=== PATIENT | female | born 1965 | race African-American/Black ===

== ENCOUNTER 2025-05-07 05:57 | Outpatient (REF) | payer BC, MEDICARE, SELFPAY ==
--- OUTSIDE RECORDS SUMMARY | 2024-02-22 09:45 | XMS_ITS ---
Author Organization [facility] Address [address] [place] [address] Support Name Relationship Address Phone Asad Sofya Emergency Contact [address] [place], [place] [phone] Bernice Livingston Guarantor Unknown [phone] Care Team Providers Care Landscape Gardener Name Role Phone Dr Nishi Banks Primary Care Provider Carli Sophy Ray Unavailable [phone] Kaleb Lenz Unavailable [phone] REASON FOR VISIT Painful nail(s) aggrevated by shoes and causing difficulty standing/walking. Encounters Encounter Location Date Provider [facility] [address] [place] [address] 02/22/2024 Kaleb Lenz Tinea unguium B35.1 ; Pain in right toe(s) M79.674 ; Pain in left toe(s) M79.675 ; Ingrowing nail L60.0 ; Skin disease L98.9 and Atherosclerosis of [place] arteries of extremities with intermittent claudication, bilateral legs I70.213 Assessments Encounter Date Diagnosis (ICD Code) Assessment Notes Treatment Notes Treatment Clinical Notes Section Notes 02/22/2024 Tinea unguium (ICD-10 - B35.1) 02/22/2024 Pain in right toe(s) (ICD-10 - M79.674) 02/22/2024 Pain in left toe(s) (ICD-10 - M79.675) 02/22/2024 Ingrowing nail (ICD-10 - L60.0) 02/22/2024 Skin disease (ICD-10 - L98.9) 02/22/2024 Atherosclerosis of [place] arteries of extremities with intermittent claudication, bilateral [...] as necessary. Patient chooses, no pharmaceutical tx (39127) Keratoma Treatment Parring or Cutting o f Benign Hyperkeratotic Lesion(s) 38276 ( 2-4 Lesions ) - The Benign hyperkeratotic lesions, as described above were pared, and/or cut utilizing a sterile 15 blade, tissue nippers, and/or dremel, Q8 Progress Notes * Cruz LIVINGSTONB:1965 ([age] yo F)Acc No.[id number]:02/22/2024 Progress Note Patient: Bernice PENA Provider: Aspen Gupta DPM :1965 A ge:58 Y S ex:Female Date:02/22/2024 Address:[address] [place], [place] [address] Pcp:Dr Nishi Banks Subjective: * Chief Complaints: [...] enies. C ardiovascular: Pacemaker d enies. M DIRECTOR OF ASSISTED LIVING d enies. W PW d enies. C [...] - L98.9 6 . A therosclerosis of [place] arteries of extremities with intermittent claudication, bilateral [...] as necessary. Patient chooses, no pharmaceutical tx (02578). K eratoma Treatment: Parring or Cutting of [...] NAIL, 6 OR MORE, Modifiers: XS , 56165 TRIM SKIN LESIONS, 2 TO 4, Modifiers: Q8 , 49605 Avulsion Plate, Modifiers: TA * Follow Up: 4 Months * Images: * The named appointment provid er may or may not be the originator of this progress note, and it is not deemed complete until electronically signed by the appointment provider. Sign off status: Pending * Provider: Aspen Gupta DPM Date: 0 02/22/2024 Generated for Kathleen olivier/Annika/Lele on: 06:04 AM EDT History and Physical Notes * [...]
--- OUTSIDE RECORDS SUMMARY | 2024-05-25 09:30 | XMS_ITS ---
Author Organization [facility] Address [address] [place] [address] Support Name Relationship Address Phone Sofya Kamara Emergency Contact [address] [place], [place] [phone] Miki Bernice Guarantor Unknown [phone] Care Team Providers Care Industrial Engineering Name Role Phone Dr Nishi Banks Primary Care Provider Carli Sophy Ray Unavailable [phone] Eddi Fulton Unavailable [phone] Allergies Allergen (clinical drug ingredient) Drug/Non Drug Allergy documented on EMR Reaction Allergy Type Onset Date Status benazepril Benazepril HCl lip swells Drug Allergy Active Encounters Encounter Location Date Provider Diagnosis [facility] [address] [place] [address] 05/25/2024 Eddi Fulton Plan Of Treatment No Information Progress Notes * Mena MEHTAaDOB:1965 ([age] yo F)Acc No.[id number]:05/25/2024 Progress Note Patient: Bernice PENA Provider: Gaurav Fulton DPM :1965 A ge:58 Y S ex:Female Date:05/25/2024 Address:[address] [place] [address] Pcp:Dr Nishi Banks Subjective: * Chief Complaints: [...] Date: 07/25/2023 Generated for Kathleen olivier/Annika/Lele on: 06:04 AM EDT
--- OUTSIDE RECORDS SUMMARY | 2025-04-17 10:00 | XMS_ITS ---
Author Organization [facility] Address [address] [place] [address] Support Name Relationship Address Phone Sofya Kamara Emergency Contact [address] [place], [place] [phone] Bernice Mehta Guarantor Unknown [phone] Care Team Providers Care Rough And Truing Machine Operator Name Role Phone Dr Nishi Banks Primary Care Provider Carli Sophy Ray Unavailable [phone] REASON FOR VISIT Cx with reminder call Encounters Encounter Location Date [facility] [address] [address] 04/17/2025 Sophy Washington Plan Of Treatment No Information Progress Notes * Mena MEHTAClaraB:1965 ([age] yo F)Acc No.[id number]:04/17/2025 Progress Note Patient: Bernice PENA Provider: Guanako Washington DPM :1965 A ge:59 Y S ex:Female Date:04/17/2025 Address:[address] [place], [place] [address] Pcp:Dr Nishi Banks Subjective: * Chief Complaints: [...] 04/17/2025 Generated for Printi ng/Faxing/eTransmitting on: 1 06:04 AM EDT
[2025-05-07 06:03] LABS: MANUAL DIFF FLAG NO
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
[2025-05-07 06:58] LABS: Hematocrit 25.8 % (37.0-47.0); Hemoglobin 8.7 g/dl (12.0-16.0); Imm Gran Abs Auto 0.01 X10*3/uL (0.00-0.03); Imm Gran Pct Auto 0.2 % (0.0-0.4); Lymphocytes Absolute Auto 1.1 X10*3/uL (1.2-4.9); Mean Corpuscular HGB Conc 33.7 g/dl (31.0-35.0); Mean Corpuscular Hemoglobin 28.3 pg (27.0-33.0); Mean Corpuscular Volume 84.0 fL (80.0-98.0); NRBC Abs Auto 0.000 X10*3/uL (0.0-0.012); NRBC Pct Auto 0.0 /100WBC (0.0-0.2); Platelet Count 269 X10*3/uL (160-400); Red Blood Count 3.07 X10*6/uL (4.20-5.50); White Blood Count 4.7 X10*3/uL (4.8-10.8)
[2025-05-07 07:35] LABS: Alanine Aminotransferase 27 U/L (0-31); Albumin Level 3.4 g/dL (3.5-5.0); Alkaline Phosphatase 88 U/L (39-117); Anion Gap 21 (12-20); Aspartate Amino Transferase 41 U/L (5-31); Blood Urea Nitrogen 54 mg/dL (9-16); Calcium 9.6 mg/dL (8.4-10.2); Carbon Dioxide 21 mmol/L (22-29); Chloride 97 mmol/L (96-108); Estimated Glomerular Filt Rate 6; Potassium 4.6 mmol/L (3.3-5.1); Sodium 134 mmol/L (135-145); Total Protein 6.8 g/dL (6.5-8.0)
[2025-05-09 05:58] LABS: Uric Acid 4.6 mg/dL (2.4-5.7)
== END 2025-05-07 05:58 | disposition home or self-care (01) ==
LOC: HO.MMNH2L 05:57
PROVIDERS: Visit Provider Physician Assistant Medical
DX: I48.91 Unspecified atrial fibrillation (principal); N18.6 End stage renal disease; G89.4 Chronic pain syndrome; Z13.1 Encounter for screening for diabetes mellitus
CPT/HCPCS: 36415; 80053; 83036; 84550; 85025

== ENCOUNTER 2025-05-14 05:17 | Outpatient (REF) | payer BC, MEDICARE, SELFPAY ==
[2025-05-14 05:16] LABS: MANUAL DIFF FLAG NO
[2025-05-14 05:51] LABS: Hematocrit 26.1 % (37.0-47.0); Hemoglobin 8.6 g/dl (12.0-16.0); Imm Gran Abs Auto 0.01 X10*3/uL (0.00-0.03); Imm Gran Pct Auto 0.2 % (0.0-0.4); Lymphocytes Absolute Auto 1.1 X10*3/uL (1.2-4.9); Mean Corpuscular HGB Conc 33.0 g/dl (31.0-35.0); Mean Corpuscular Hemoglobin 28.1 pg (27.0-33.0); Mean Corpuscular Volume 85.3 fL (80.0-98.0); NRBC Abs Auto 0.000 X10*3/uL (0.0-0.012); NRBC Pct Auto 0.0 /100WBC (0.0-0.2); Platelet Count 255 X10*3/uL (160-400); Red Blood Count 3.06 X10*6/uL (4.20-5.50); White Blood Count 4.6 X10*3/uL (4.8-10.8)
[2025-05-14 06:17] LABS: Anion Gap 13 (12-20); Blood Urea Nitrogen 49 mg/dL (9-16); Calcium 10.9 mg/dL (8.4-10.2); Carbon Dioxide 29 mmol/L (22-29); Chloride 100 mmol/L (96-108); Estimated Glomerular Filt Rate 7; Potassium 3.8 mmol/L (3.3-5.1); Sodium 138 mmol/L (135-145)
== END 2025-05-14 05:18 | disposition home or self-care (01) ==
LOC: HO.MMNH2L 05:17
PROVIDERS: Visit Provider Physician Assistant Medical
DX: N18.6 End stage renal disease (principal); I48.91 Unspecified atrial fibrillation
CPT/HCPCS: 36415; 80048; 85025

== ENCOUNTER 2025-05-17 07:39 | Outpatient (REF) | payer BC, MEDICARE, SELFPAY ==
--- OUTSIDE RECORDS SUMMARY | 2024-02-22 09:45 | XMS_ITS ---
Author Organization [facility] Address [address] [place] [address] Support Name Relationship Address Phone Asad Sofya Emergency Contact [address] [place], [place] [phone] Bernice Livingston Guarantor Unknown [phone] Care Team Providers Care Hash Slinger Name Role Phone Dr Nishi Banks Primary Care Provider Carli Sophy Ray Unavailable [phone] Kaleb Lenz Unavailable [phone] REASON FOR VISIT Painful nail(s) aggrevated by shoes and causing difficulty standing/walking. Encounters Encounter Location Date [facility] [address] [place] [address] 02/22/2024 Kaleb Lenz Tinea unguium B35.1 ; Pain in right toe(s) M79.674 ; Pain in left toe(s) M79.675 ; Ingrowing nail L60.0 ; Skin disease L98.9 and Atherosclerosis of [place] arteries of extremities with intermittent claudication, bilateral legs I70.213 Assessments Encounter Date Diagnosis (ICD Code) Assessment Notes Treatment Notes Treatment Clinical Notes Section Notes 02/22/2024 Tinea unguium (ICD-10 - B35.1) 02/22/2024 Pain in right toe(s) (ICD-10 - M79.674) 02/22/2024 Pain in left toe(s) (ICD-10 - M79.675) 02/22/2024 Ingrowing nail (ICD-10 - L60.0) 02/22/2024 Skin disease (ICD-10 - L98.9) 02/22/2024 Atherosclerosis of [place] arteries of extremities with intermittent claudication, bilateral [...] as necessary. Patient chooses, no pharmaceutical tx (34527) Keratoma Treatment Parring or Cutting o f Benign Hyperkeratotic Lesion(s) 76126 ( 2-4 Lesions ) - The Benign hyperkeratotic lesions, as described above were pared, and/or cut utilizing a sterile 15 blade, tissue nippers, and/or dremel, Q8 Progress Notes * Cruz LIVINGSTONB:1965 ([age] yo F)Acc No.[id number]:02/22/2024 Progress Note Patient: Bernice PENA Provider: Aspen Gupta DPM :1965 A ge:58 Y S ex:Female Date:02/22/2024 Address:[address] [place], [place] [address] Pcp:Dr Nishi Banks Subjective: * Chief Complaints: [...] enies. C ardiovascular: Pacemaker d enies. M CHILDREN'S MINISTRY DIRECTOR d enies. W PW d enies. C [...] - L98.9 6 . A therosclerosis of [place] arteries of extremities with intermittent claudication, bilateral [...] as necessary. Patient chooses, no pharmaceutical tx (47729). K eratoma Treatment: Parring or Cutting of [...] NAIL, 6 OR MORE, Modifiers: XS , 99592 TRIM SKIN LESIONS, 2 TO 4, Modifiers: Q8 , 24499 Avulsion Plate, Modifiers: TA * Follow Up: 4 Months * Images: * The named appointment provid er may or may not be the originator of this progress note, and it is not deemed complete until electronically signed by the appointment provider. Sign off status: Pending * Provider: Aspen Gupta DPM Date: 0 02/22/2024 Generated for Kathleen olivier/Annika/Lele on: 07:45 AM EDT History and Physical Notes * HPI (History [...]
--- OUTSIDE RECORDS SUMMARY | 2024-05-25 09:30 | XMS_ITS ---
Author Organization [facility] Address [address] [place] [address] Support Name Relationship Address Phone Sofya Kamara Emergency Contact [address] [place], [place] [phone] Miki Bernice Guarantor Unknown [phone] Care Team Providers Care Manager Project Management Name Role Phone Dr Nishi Banks Primary Care Provider Carli Sophy Ray Unavailable [phone] Eddi Fulton Unavailable [phone] Allergies Allergen (clinical drug ingredient) Drug/Non Drug Allergy documented on EMR Reaction Allergy Type Onset Date Status benazepril Benazepril HCl lip swells Drug Allergy Active Encounters Encounter Location Date Provider Diagnosis [facility] [address] [place] [address] 05/25/2024 Eddi Fulton Plan Of Treatment No Information Progress Notes * Mena MEHTAaDOB:1965 ([age] yo F)Acc No.[id number]:05/25/2024 Progress Note Patient: Bernice PENA Provider: Gaurav Fulton DPM :1965 A ge:58 Y S ex:Female Date:05/25/2024 Address:[address] [place] [address] Pcp:Dr Nishi Banks Subjective: * Chief Complaints: [...] Date: 07/25/2023 Generated for Kathleen olivier/Annika/Lele on: 07:46 AM EDT
--- OUTSIDE RECORDS SUMMARY | 2025-04-17 10:00 | XMS_ITS ---
Author Organization [facility] Address [address] [place] [address] Support Name Relationship Address Phone Sofya Kamara Emergency Contact [address] [place], [place] [phone] Bernice Mehta Guarantor Unknown [phone] Care Team Providers Care Speech Communication Instructor Name Role Phone Dr Nishi Banks Primary Care Provider Carli Sophy Ray Unavailable [phone] REASON FOR VISIT Cx with reminder call Encounters Encounter Location Date [facility] [address] [address] 04/17/2025 Sophy Washington Plan Of Treatment No Information Progress Notes * Mena MEHTAClaraB:1965 ([age] yo F)Acc No.[id number]:04/17/2025 Progress Note Patient: Bernice PENA Provider: Guanako Washington DPM :1965 A ge:59 Y S ex:Female Date:04/17/2025 Address:[address] [place], [place] [address] Pcp:Dr Nishi Banks Subjective: * Chief Complaints: [...] 04/17/2025 Generated for Printi ng/Faxing/eTransmitting on: 1 07:45 AM EDT
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
[2025-05-17 09:51] LABS: Anion Gap 14 (12-20); Blood Urea Nitrogen 55 mg/dL (9-16); Calcium 11.4 mg/dL (8.4-10.2); Carbon Dioxide 29 mmol/L (22-29); Chloride 100 mmol/L (96-108); Estimated Glomerular Filt Rate 6; Potassium 4.4 mmol/L (3.3-5.1); Sodium 139 mmol/L (135-145)
== END 2025-05-17 07:40 | disposition home or self-care (01) ==
LOC: HO.MMNH2L 07:39
PROVIDERS: Visit Provider Physician Assistant Medical
DX: N18.6 End stage renal disease (principal)
CPT/HCPCS: 36415; 80048

== ENCOUNTER 2025-05-21 05:45 | Outpatient (REF) | payer BC, MEDICARE, SELFPAY ==
--- OUTSIDE RECORDS SUMMARY | 2024-02-22 08:45 | XMS_ITS ---
Author Organization [facility] Address [address] [place] [address] Support Name Relationship Address Phone Asad Sofya Emergency Contact [address] [place], [place] [phone] Bernice Livingston Guarantor Unknown [phone] Care Team Providers Care Bilingual Case Manager Name Role Phone Dr Nishi Banks Primary Care Provider Carli Sophy Ray Unavailable [phone] Kaleb Lenz Unavailable [phone] REASON FOR VISIT Painful nail(s) aggrevated by shoes and causing difficulty standing/walking. Encounters Encounter Location Date [facility] [address] [place] [address] 02/22/2024 Kaleb Lenz Tinea unguium B35.1 ; Pain in right toe(s) M79.674 ; Pain in left toe(s) M79.675 ; Ingrowing nail L60.0 ; Skin disease L98.9 and Atherosclerosis of [place] arteries of extremities with intermittent claudication, bilateral legs I70.213 Assessments Encounter Date Diagnosis (ICD Code) Assessment Notes Treatment Notes Treatment Clinical Notes Section Notes 02/22/2024 Tinea unguium (ICD-10 - B35.1) 02/22/2024 Pain in right toe(s) (ICD-10 - M79.674) 02/22/2024 Pain in left toe(s) (ICD-10 - M79.675) 02/22/2024 Ingrowing nail (ICD-10 - L60.0) 02/22/2024 Skin disease (ICD-10 - L98.9) 02/22/2024 Atherosclerosis of [place] arteries of extremities with intermittent claudication, bilateral [...] as necessary. Patient chooses, no pharmaceutical tx (51781) Keratoma Treatment Parring or Cutting o f Benign Hyperkeratotic Lesion(s) 04852 ( 2-4 Lesions ) - The Benign hyperkeratotic lesions, as described above were pared, and/or cut utilizing a sterile 15 blade, tissue nippers, and/or dremel, Q8 Progress Notes * Cruz LIVINGSTONB:1965 ([age] yo F)Acc No.[id number]:02/22/2024 Progress Note Patient: Bernice PENA Provider: Aspen Gupta DPM :1965 A ge:58 Y S ex:Female Date:02/22/2024 Address:[address] [place], [place] [address] Pcp:Dr Nishi Banks Subjective: * Chief Complaints: [...] enies. C ardiovascular: Pacemaker d enies. M LENS ASSISTANT d enies. W PW d enies. C [...] - L98.9 6 . A therosclerosis of [place] arteries of extremities with intermittent claudication, bilateral [...] as necessary. Patient chooses, no pharmaceutical tx (02834). K eratoma Treatment: Parring or Cutting of [...] NAIL, 6 OR MORE, Modifiers: XS , 47790 TRIM SKIN LESIONS, 2 TO 4, Modifiers: Q8 , 95295 Avulsion Plate, Modifiers: TA * Follow Up: 4 Months * Images: * The named appointment provid er may or may not be the originator of this progress note, and it is not deemed complete until electronically signed by the appointment provider. Sign off status: Pending * Provider: Aspen Gupta DPM Date: 0 02/22/2024 Generated for Kathleen olivier/Annika/Lele on: 07/21/2024 05:48 AM EST History and Physical Notes * [...]
--- OUTSIDE RECORDS SUMMARY | 2024-05-25 08:30 | XMS_ITS ---
Author Organization [facility] Address [address] [place] [address] Support Name Relationship Address Phone Sofya Kamara Emergency Contact [address] [place], [place] [phone] Miki Bernice Guarantor Unknown [phone] Care Team Providers Care Sales Recruitment Specialist Name Role Phone Dr Nishi Banks Primary Care Provider Carli Sophy Ray Unavailable [phone] Eddi Fulton Unavailable [phone] Allergies Allergen (clinical drug ingredient) Drug/Non Drug Allergy documented on EMR Reaction Allergy Type Onset Date Status benazepril Benazepril HCl lip swells Drug Allergy Active Encounters Encounter Location Date Provider Diagnosis [facility] [address] [place] [phone] 05/25/2024 Eddi Fulton Plan Of Treatment No Information Progress Notes * Mena MEHTAaDOB:1965 ([age] yo F)Acc No.[id number]:05/25/2024 Progress Note Patient: Bernice PENA Provider: Gaurav Fulton DPM :1965 A ge:58 Y S ex:Female Date:05/25/2024 Address:[address] [place] [address] Pcp:Dr Nishi Banks Subjective: * Chief Complaints: [...] Date: 07/25/2023 Generated for Kathleen olivier/Annika/Lele on: 07/21/2024 05:48 AM EST
--- OUTSIDE RECORDS SUMMARY | 2025-04-17 09:00 | XMS_ITS ---
Author Organization [facility] Address [address] [place] [address] Support Name Relationship Address Phone Sofya Kamara Emergency Contact [address] [place], [place] [phone] Bernice Mehta Guarantor Unknown [phone] Care Team Providers Care Draw Operator Name Role Phone Dr Nishi Banks Primary Care Provider Carli Sophy Ray Unavailable [phone] REASON FOR VISIT Cx with reminder call Encounters Encounter Location Date [facility] [address] [address] 04/17/2025 Sophy Washington Plan Of Treatment No Information Progress Notes * Mena MEHTAClaraB:1965 ([age] yo F)Acc No.[id number]:04/17/2025 Progress Note Patient: Bernice PENA Provider: Guanako Washington DPM :1965 A ge:59 Y S ex:Female Date:04/17/2025 Address:[address] [place], [place] [address] Pcp:Dr Nishi Banks Subjective: * Chief Complaints: [...] 0 04/17/2025 Generated for Printi ng/Faxing/eTransmitting on: 07/21/2024 05:48 AM EST
[2025-05-21 05:38] LABS: MANUAL DIFF FLAG NO
--- OUTSIDE RECORDS SUMMARY | 2025-05-21 05:49 | XMS_ITS | Patient Health Record ---
Author Organization [facility] Address [address] [place] [address] Support Name Relationship Address Phone Sofya Kamara Emergency Contact [address] [place], [place] [phone] Bernice Livingston Guarantor Unknown [phone] Care Team Providers Care Paraffiner Name Role Phone Dr Nishi Banks Primary Care Provider Sophy Albrecht Unavailable [phone] Eddi Fulton Unavailable [phone] Allergies Allergen (clinical drug ingredient) Drug/Non Drug [...] Status Risk Notes Problem Plantar fascial fibromatosis (89645452) Plantar fascial fibromatosis (M72.2) Active confirmed Problem Tinea unguium (443076839) Tinea unguium (B35.1) Active confirmed Problem Intermittent claudication of bilateral lower limbs co-occurrent and due to atherosclerosis (98722053898135843 ) Atherosclerosis of [place] arteries of extremities with intermittent claudication, bilateral legs (I70.213) Active confirmed Vital Signs Height 5ft 9in in 01/16/2025 Weight 240 lbs 01/16/2025 BMI 35.44 kg/m2 01/16/2025 Procedures Procedure Date Ordered Date Performed Result Body Sit e 26652-HENBPRC NAIL, 6 OR MORE 01/16/2025 N/A Encounters Encounter Location Date Provider [facility] [address] [address] 01/16/2025 Sophy Washington Pain in right toe(s) M79.674 ; Onychomycosis B35.1 and Pain in left toe(s) M79.675 [facility] [address] [address] 05/25/2024 Eddisiddharth Fulton [facility] [address] [address] 04/16/2025 Sophy Washington Assessments Encounter Date Diagnosis (ICD Code) Assessment Notes Treatment Notes Treatment Clinical Notes Section Notes 01/16/2025 Pain in right toe(s) (ICD-10 - M79.674) 01/16/2025 Onychomycosis (ICD-10 - B35.1) 01/16/2025 Pain in left toe(s) (ICD-10 - M79.675) Plan Of Treatment Pending Test Test Name Order Date 26928-FXINTMI NAIL, 6 OR MORE 10/22/2016 86631-TXCNSJO NAIL, 6 OR MORE 10/15/2016 63016-YMVUSFT NAIL, 6 OR MORE 01/16/2025 73049-Dkxrqhqx Plate 06/01/2023 68200-Fmqxhigy Plate 10/15/2016 26261-Cjoelghf Plate 10/22/2016 75594-XSKO SKIN LESIONS, 2 TO 4 02/10/20 13839-STZK SKIN LESIONS, 2 TO 4 06/01/20 Insurance Providers Payer Name Payer Address Payer Phone Subscriber Number Group Number Insured Name Patient Relationship to Insured Coverage Start Date Coverage End Date [facility] [employer] SCO Claims [address] [place] Velaz[place] [id number] Bernice Livingston Self - patient is the [...] 11/2024 hysterectomy complications, stitch came out [place]18[place] [facility] [facility] [place] [facility] [place] [facility] [place] [facility] [place] [place] 01/22/23 [facility] 09/21/16
[2025-05-21 06:27] LABS: Hematocrit 26.2 % (37.0-47.0); Hemoglobin 8.7 g/dl (12.0-16.0); Imm Gran Abs Auto 0.01 X10*3/uL (0.00-0.03); Imm Gran Pct Auto 0.2 % (0.0-0.4); Lymphocytes Absolute Auto 1.0 X10*3/uL (1.2-4.9); Mean Corpuscular HGB Conc 33.2 g/dl (31.0-35.0); Mean Corpuscular Hemoglobin 28.2 pg (27.0-33.0); Mean Corpuscular Volume 84.8 fL (80.0-98.0); NRBC Abs Auto 0.000 X10*3/uL (0.0-0.012); NRBC Pct Auto 0.0 /100WBC (0.0-0.2); Platelet Count 170 X10*3/uL (160-400); Red Blood Count 3.09 X10*6/uL (4.20-5.50); White Blood Count 4.4 X10*3/uL (4.8-10.8)
[2025-05-21 07:23] LABS: Anion Gap 12 (12-20); Blood Urea Nitrogen 49 mg/dL (9-16); Calcium 10.8 mg/dL (8.4-10.2); Carbon Dioxide 29 mmol/L (22-29); Chloride 98 mmol/L (96-108); Estimated Glomerular Filt Rate 7; Potassium 4.5 mmol/L (3.3-5.1); Sodium 134 mmol/L (135-145)
== END 2025-05-21 05:46 | disposition home or self-care (01) ==
LOC: HO.MMNH2L 05:45
PROVIDERS: Visit Provider Physician Assistant Medical
DX: N18.6 End stage renal disease (principal); I48.91 Unspecified atrial fibrillation
CPT/HCPCS: 36415; 80048; 85025

== ENCOUNTER 2025-05-23 06:51 | Outpatient (REF) | payer BC, MEDICARE, SELFPAY ==
--- OUTSIDE RECORDS SUMMARY | 2024-02-22 08:45 | XMS_ITS ---
Author Organization [facility] Address [address] [place] [address] Support Name Relationship Address Phone Asad Sofya Emergency Contact [address] [place], [place] [phone] Bernice Livingston Guarantor Unknown [phone] Care Team Providers Care Manager Of Business Name Role Phone Dr Nishi Banks Primary Care Provider Carli Sophy Ray Unavailable [phone] Kaleb Lenz Unavailable [phone] REASON FOR VISIT Painful nail(s) aggrevated by shoes and causing difficulty standing/walking. Encounters Encounter Location Date [facility] [address] [place] [address] 02/22/2024 Kaleb Lenz Tinea unguium B35.1 ; Pain in right toe(s) M79.674 ; Pain in left toe(s) M79.675 ; Ingrowing nail L60.0 ; Skin disease L98.9 and Atherosclerosis of [place] arteries of extremities with intermittent claudication, bilateral legs I70.213 Assessments Encounter Date Diagnosis (ICD Code) Assessment Notes Treatment Notes Treatment Clinical Notes Section Notes 02/22/2024 Tinea unguium (ICD-10 - B35.1) 02/22/2024 Pain in right toe(s) (ICD-10 - M79.674) 02/22/2024 Pain in left toe(s) (ICD-10 - M79.675) 02/22/2024 Ingrowing nail (ICD-10 - L60.0) 02/22/2024 Skin disease (ICD-10 - L98.9) 02/22/2024 Atherosclerosis of [place] arteries of extremities with intermittent claudication, bilateral [...] as necessary. Patient chooses, no pharmaceutical tx (24161) Keratoma Treatment Parring or Cutting o f Benign Hyperkeratotic Lesion(s) 88682 ( 2-4 Lesions ) - The Benign hyperkeratotic lesions, as described above were pared, and/or cut utilizing a sterile 15 blade, tissue nippers, and/or dremel, Q8 Progress Notes * Cruz LIVINGSTONB:1965 ([age] yo F)Acc No.[id number]:02/22/2024 Progress Note Patient: Bernice PENA Provider: Aspen Gupta DPM :1965 A ge:58 Y S ex:Female Date:02/22/2024 Address:[address] [place], [place] [id number] Pcp:Dr Nishi Banks Subjective: * Chief Complaints: [...] enies. C ardiovascular: Pacemaker d enies. M SENIOR MANAGER ASSET PROTECTION d enies. W PW d enies. C [...] - L98.9 6 . A therosclerosis of [place] arteries of extremities with intermittent claudication, bilateral [...] as necessary. Patient chooses, no pharmaceutical tx (44235). K eratoma Treatment: Parring or Cutting of [...] NAIL, 6 OR MORE, Modifiers: XS , 67267 TRIM SKIN LESIONS, 2 TO 4, Modifiers: Q8 , 89825 Avulsion Plate, Modifiers: TA * Follow Up: 4 Months * Images: * The named appointment provid er may or may not be the originator of this progress note, and it is not deemed complete until electronically signed by the appointment provider. Sign off status: Pending * Provider: Aspen Gupta DPM Date: 0 02/22/2024 Generated for Kathleen olivier/Annika/Lele on: 07/23/2024 06:53 AM EST History and Physical Notes * [...]
--- OUTSIDE RECORDS SUMMARY | 2024-05-25 08:30 | XMS_ITS ---
Author Organization [facility] Address [address] [place] [address] Support Name Relationship Address Phone Sofya Kamara Emergency Contact [address] [place], [place] [phone] Miki Bernice Guarantor Unknown [phone] Care Team Providers Care Innovation Manager Name Role Phone Dr Nishi Banks Primary Care Provider Carli Sophy Ray Unavailable [phone] Eddi Fulton Unavailable [phone] Allergies Allergen (clinical drug ingredient) Drug/Non Drug Allergy documented on EMR Reaction Allergy Type Onset Date Status benazepril Benazepril HCl lip swells Drug Allergy Active Encounters Encounter Location Date Provider Diagnosis [facility] [address] [place] [address] 05/25/2024 Eddi Fulton Plan Of Treatment No Information Progress Notes * Mena MEHTAaDOB:1965 ([age] yo F)Acc No.[id number]:05/25/2024 Progress Note Patient: Bernice PENA Provider: Gaurav Fulton DPM :1965 A ge:58 Y S ex:Female Date:05/25/2024 Address:[address] [place] [address] Pcp:Dr Nishi Banks Subjective: * Chief Complaints: [...] Fulton DPM Date: 07/25/2023 Generated for Kathleen olivier/Annika/Lele on: 07/23/2024 06:53 AM EST
--- OUTSIDE RECORDS SUMMARY | 2025-04-17 09:00 | XMS_ITS ---
Author Organization [facility] Address [address] [place] [address] Support Name Relationship Address Phone Sofya Kamara Emergency Contact [address] [place], [place] [phone] Bernice Mehta Guarantor Unknown [phone] Care Team Providers Care Loss Control Engineer Name Role Phone Dr Nishi Banks Primary Care Provider Carli Sophy Ray Unavailable [phone] REASON FOR VISIT Cx with reminder call Encounters Encounter Location Date Provider [facility] [address] [address] 04/17/2025 Sophy Washington Plan Of Treatment No Information Progress Notes * Mena MEHTAClaraB:1965 ([age] yo F)Acc No.[id number]:04/17/2025 Progress Note Patient: Bernice PENA Provider: Guanako Washington DPM :1965 A ge:59 Y S ex:Female Date:04/17/2025 Address:[address] [place], [place] [address] Pcp:Dr Nishi Banks Subjective: * Chief Complaints: [...] 0 04/17/2025 Generated for Printi ng/Faxing/eTransmitting on: 07/23/2024 06:53 AM EST
--- OUTSIDE RECORDS SUMMARY | 2025-05-23 06:54 | XMS_ITS | Patient Health Record ---
Author Organization [facility] Address [address] [place] [address] Support Name Relationship Address Phone Sofya Kamara Emergency Contact [address] [place], [place] [phone] Bernice Livingston Guarantor Unknown [phone] Care Team Providers Care Glass Ribbon Machine Operator Name Role Phone Dr Nishi Banks Primary Care Provider Sophy Albrecht Unavailable [phone] Eddi Fulton Unavailable [phone] Allergies Allergen (clinical drug ingredient) Drug/Non Drug [...] Status Risk Notes Problem Plantar fascial fibromatosis (37910720) Plantar fascial fibromatosis (M72.2) Active confirmed Problem Tinea unguium (106227609) Tinea unguium (B35.1) Active confirmed Problem Intermittent claudication of bilateral lower limbs co-occurrent and due to atherosclerosis (89019260860963769 ) Atherosclerosis of [place] arteries of extremities with intermittent claudication, bilateral legs (I70.213) Active confirmed Vital Signs Height 5ft 9in in 01/16/2025 Weight 240 lbs 01/16/2025 BMI 35.44 kg/m2 01/16/2025 Procedures Procedure Date Ordered Date Performed Result Body Sit e 20355-NUTQYBO NAIL, 6 OR MORE 01/16/2025 N/A Encounters Encounter Location Date Provider Diagnosis [facility] [address] [address] 01/16/2025 Sophy Washington Pain in right toe(s) M79.674 ; Onychomycosis B35.1 and Pain in left toe(s) M79.675 [facility] [address] [address] 05/25/2024 Eddisiddharth Fulton [facility] [address] [address] 04/16/2025 Sophy Washington Assessments Encounter Date Diagnosis (ICD Code) Assessment Notes Treatment Notes Treatment Clinical Notes Section Notes 01/16/2025 Pain in right toe(s) (ICD-10 - M79.674) 01/16/2025 Onychomycosis (ICD-10 - B35.1) 01/16/2025 Pain in left toe(s) (ICD-10 - M79.675) Plan Of Treatment Pending Test Test Name Order Date 97417-VLDBYMR NAIL, 6 OR MORE 10/22/2016 66754-VJSHMUA NAIL, 6 OR MORE 10/15/2016 24087-YKOZPLQ NAIL, 6 OR MORE 01/16/2025 14095-Pyvojzuz Plate 06/01/2023 54420-Zxjjamuj Plate 10/15/2016 46034-Dfaelcfz Plate 10/22/2016 11432-ZLRW SKIN LESIONS, 2 TO 4 02/10/20 79403-RXTO SKIN LESIONS, 2 TO 4 06/01/20 Insurance Providers Payer Name Payer Address Payer Phone Subscriber Number Group Number Insured Name Patient Relationship to Insured Coverage Start Date Coverage End Date [facility] [employer] SCO Claims [address] [place] [id number] Bernice Livingston Self - patient is the [...] 11/2024 hysterectomy complications, stitch came out 11/18/24 [facility] [place] 09[place]13[place]23 [facility] [place] 04[place]2023 [facility] [place] 01/22/23 [facility] 09/21/16
== END 2025-05-23 06:52 | disposition home or self-care (01) ==
LOC: HO.MMNH2L 06:51
PROVIDERS: Visit Provider Physician Assistant Medical
DX: Z13.89 Encounter for screening for other disorder (principal)

== ENCOUNTER 2025-05-25 07:22 | Outpatient (REF) | payer BC, MEDICARE, SELFPAY ==
--- OUTSIDE RECORDS SUMMARY | 2024-02-22 08:45 | XMS_ITS ---
Author Organization [facility] Address [address] [place] [address] Support Name Relationship Address Phone Asad Sofya Emergency Contact [address] [place], [place] [phone] Bernice Livingston Guarantor Unknown [phone] Care Team Providers Care Washhouse Hand Name Role Phone Dr Nishi Banks Primary Care Provider Carli Sophy Ray Unavailable [phone] Kaleb Lenz Unavailable [phone] REASON FOR VISIT Painful nail(s) aggrevated by shoes and causing difficulty standing/walking. Encounters Encounter Location Date Provider [facility] [address] [place] [address] 02/22/2024 Kaleb Lenz Tinea unguium B35.1 ; Pain in right toe(s) M79.674 ; Pain in left toe(s) M79.675 ; Ingrowing nail L60.0 ; Skin disease L98.9 and Atherosclerosis of [place] arteries of extremities with intermittent claudication, bilateral legs I70.213 Assessments Encounter Date Diagnosis (ICD Code) Assessment Notes Treatment Notes Treatment Clinical Notes Section Notes 02/22/2024 Tinea unguium (ICD-10 - B35.1) 02/22/2024 Pain in right toe(s) (ICD-10 - M79.674) 02/22/2024 Pain in left toe(s) (ICD-10 - M79.675) 02/22/2024 Ingrowing nail (ICD-10 - L60.0) 02/22/2024 Skin disease (ICD-10 - L98.9) 02/22/2024 Atherosclerosis of [place] arteries of extremities with intermittent claudication, bilateral [...] as necessary. Patient chooses, no pharmaceutical tx (53930) Keratoma Treatment Parring or Cutting o f Benign Hyperkeratotic Lesion(s) 73519 ( 2-4 Lesions ) - The Benign hyperkeratotic lesions, as described above were pared, and/or cut utilizing a sterile 15 blade, tissue nippers, and/or dremel, Q8 Progress Notes * Cruz LIVINGSTONB:1965 ([age] yo F)Acc No.[id number]:02/22/2024 Progress Note Patient: Bernice PENA Provider: Aspen Gupta DPM :1965 A ge:58 Y S ex:Female Date:02/22/2024 Address:[address] [place], [place] [id number] Pcp:Dr Nishi Banks Subjective: * Chief Complaints: [...] enies. C ardiovascular: Pacemaker d enies. M LEARNING OPERATIONS SPECIALIST d enies. W PW d enies. [...] - L98.9 6 . A therosclerosis of [place] arteries of extremities with intermittent claudication, bilateral [...] as necessary. Patient chooses, no pharmaceutical tx (16822). K eratoma Treatment: Parring or Cutting of [...] NAIL, 6 OR MORE, Modifiers: XS , 88778 TRIM SKIN LESIONS, 2 TO 4, Modifiers: Q8 , 50577 Avulsion Plate, Modifiers: TA * Follow Up: 4 Months * Images: * The named appointment provid er may or may not be the originator of this progress note, and it is not deemed complete until electronically signed by the appointment provider. Sign off status: Pending * Provider: Aspen Gupta DPM Date: 0 02/22/2024 Generated for Kathleen olivier/Annika/Lele on: 07/25/2024 07:27 AM EST History and Physical Notes * [...]
--- OUTSIDE RECORDS SUMMARY | 2024-05-25 08:30 | XMS_ITS ---
Author Organization [facility] Address [address] [place] [address] Support Name Relationship Address Phone Sofya Kamara Emergency Contact [address] [place], [place] [phone] Miki Bernice Guarantor Unknown [phone] Care Team Providers Care Screw Eye Assembler Name Role Phone Dr Nishi Banks Primary Care Provider Carli Sophy Ray Unavailable [phone] Eddi Fulton Unavailable [phone] Allergies Allergen (clinical drug ingredient) Drug/Non Drug Allergy documented on EMR Reaction Allergy Type Onset Date Status benazepril Benazepril HCl lip swells Drug Allergy Active Encounters Encounter Location Date Provider Diagnosis [facility] [address] [place] [phone] 05/25/2024 Eddi Fulton Plan Of Treatment No Information Progress Notes * Mena MEHTAaDOB:1965 ([age] yo F)Acc No.[id number]:05/25/2024 Progress Note Patient: Bernice PENA Provider: Gaurav Fulton DPM :1965 A ge:58 Y S ex:Female Date:05/25/2024 Address:[address] [place] [address] Pcp:Dr Nishi Banks Subjective: * Chief Complaints: [...] Date: 07/25/2023 Generated for Kathleen olivier/Annika/Lele on: 07/25/2024 07:27 AM EST
--- OUTSIDE RECORDS SUMMARY | 2025-04-17 09:00 | XMS_ITS ---
Author Organization [facility] Address [address] [place] [address] Support Name Relationship Address Phone Sofya Kamara Emergency Contact [address] [place], [place] [phone] Bernice Mehta Guarantor Unknown [phone] Care Team Providers Care Sponge Clipper Name Role Phone Dr Nishi Banks Primary Care Provider Carli Sophy Ray Unavailable [phone] REASON FOR VISIT Cx with reminder call Encounters Encounter Location Date [facility] [address] [address] 04/17/2025 Sophy Washington Plan Of Treatment No Information Progress Notes * Mena MEHTAClaraB:1965 ([age] yo F)Acc No.[id number]:04/17/2025 Progress Note Patient: Bernice PENA Provider: Guanako Washington DPM :1965 A ge:59 Y S ex:Female Date:04/17/2025 Address:[address] [place], [place] [address] Pcp:Dr Nishi Banks Subjective: * Chief Complaints: * 1 . Cx with reminder call. * Medical History: Objective: * Vitals: Assessment: Plan: * Treatment: * Images: * The named appointment provid er may or may not be the originator of this progress note, and it is not deemed complete until electronically signed by the appointment provider. Sign off status: Pending * Provider: Guanako Washington DPM Date: 0 04/17/2025 Generated for Printi ng/Faxing/eTransmitting on: 07/25/2024 07:26 AM EST
--- OUTSIDE RECORDS SUMMARY | 2025-05-25 07:27 | XMS_ITS | Patient Health Record ---
Author Organization [facility] Address [address] [place] [address] Support Name Relationship Address Phone Sofya Kamara Emergency Contact [address] [place], [place] [phone] Bernice Livingston Guarantor Unknown [phone] Care Team Providers Care Supervisor Chemical Name Role Phone Dr Nishi Banks Primary Care Provider Sophy Albrecht Unavailable [phone] Eddi Fulton Unavailable [phone] Allergies Allergen (clinical drug ingredient) Drug/Non Drug [...] Status Risk Notes Problem Plantar fascial fibromatosis (99755862) Plantar fascial fibromatosis (M72.2) Active confirmed Problem Tinea unguium (320140998) Tinea unguium (B35.1) Active confirmed Problem Intermittent claudication of bilateral lower limbs co-occurrent and due to atherosclerosis (64108077189517244 ) Atherosclerosis of [place] arteries of extremities with intermittent claudication, bilateral legs (I70.213) Active confirmed Vital Signs Height 5ft 9in in 01/16/2025 Weight 240 lbs 01/16/2025 BMI 35.44 kg/m2 01/16/2025 Procedures Procedure Date Ordered Date Performed Result Body Sit e 86282-XPRUXVM NAIL, 6 OR MORE 01/16/2025 N/A Encounters Encounter Location Date Provider Diagnosis [facility] [address] [address] 01/16/2025 Sophy Washington Pain in right toe(s) M79.674 ; Onychomycosis B35.1 and Pain in left toe(s) M79.675 [facility] [address] [address] 05/25/2024 Eddisiddharth Fulton [facility] [address] [address] 04/16/2025 Sophy Washington Assessments Encounter Date Diagnosis (ICD Code) Assessment Notes Treatment Notes Treatment Clinical Notes Section Notes 01/16/2025 Pain in right toe(s) (ICD-10 - M79.674) 01/16/2025 Onychomycosis (ICD-10 - B35.1) 01/16/2025 Pain in left toe(s) (ICD-10 - M79.675) Plan Of Treatment Pending Test Test Name Order Date 11775-MRNVDLH NAIL, 6 OR MORE 10/22/2016 93551-PTUBXBJ NAIL, 6 OR MORE 10/15/2016 50161-DVYDZVV NAIL, 6 OR MORE 01/16/2025 47752-Wbzwbrwg Plate 06/01/2023 81573-Lldukvce Plate 10/15/2016 13669-Mvmsbcyc Plate 10/22/2016 57903-UURM SKIN LESIONS, 2 TO 4 02/10/20 01386-ZTCL SKIN LESIONS, 2 TO 4 06/01/20 Insurance Providers Payer Name Payer Address Payer Phone Subscriber Number Group Number Insured Name Patient Relationship to Insured Coverage Start Date Coverage End Date [facility] [employer] SCO Claims [address] [place] [id number] Bernice Livingston Self - patient is the [...] 11/2024 hysterectomy complications, stitch came out 11/18/24 [facility] [place]23 [facility] [place]2023 [facility] [place] 01/22/23 [facility] 09/21/16
== END 2025-05-25 07:23 | disposition home or self-care (01) ==
LOC: HO.MMNH2L 07:22
PROVIDERS: Visit Provider Student in an Organized Health Care Education/Training Program
DX: Z13.89 Encounter for screening for other disorder (principal)

== ENCOUNTER 2025-05-28 05:25 | Outpatient (REF) | payer BC, MEDICARE, SELFPAY ==
--- OUTSIDE RECORDS SUMMARY | 2024-02-22 08:45 | XMS_ITS ---
Author Organization [facility] Address [address] [place] [address] Support Name Relationship Address Phone Asad Sofya Emergency Contact [address] [place], [place] [phone] Bernice Livingston Guarantor Unknown [phone] Care Team Providers Care Senior Microsoft Net Developer Name Role Phone Dr Nishi Banks Primary Care Provider Carli Sophy Ray Unavailable [phone] Kaleb Lenz Unavailable [phone] REASON FOR VISIT Painful nail(s) aggrevated by shoes and causing difficulty standing/walking. Encounters Encounter Location Date [facility] [address] [place] [address] 02/22/2024 Kaleb Lenz Tinea unguium B35.1 ; Pain in right toe(s) M79.674 ; Pain in left toe(s) M79.675 ; Ingrowing nail L60.0 ; Skin disease L98.9 and Atherosclerosis of [place] arteries of extremities with intermittent claudication, bilateral legs I70.213 Assessments Encounter Date Diagnosis (ICD Code) Assessment Notes Treatment Notes Treatment Clinical Notes Section Notes 02/22/2024 Tinea unguium (ICD-10 - B35.1) 02/22/2024 Pain in right toe(s) (ICD-10 - M79.674) 02/22/2024 Pain in left toe(s) (ICD-10 - M79.675) 02/22/2024 Ingrowing nail (ICD-10 - L60.0) 02/22/2024 Skin disease (ICD-10 - L98.9) 02/22/2024 Atherosclerosis of [place] arteries of extremities with intermittent claudication, bilateral legs (ICD-10 - I70.213) Plan Of Treatment Next Appt Details Follow Up: 4 Months, Reason: Procedure Notes * Category Sub-Category Detail Notes Nail Avulsion Procedure A fine sterile e levator was used to loosen the eponychium, nail bed, nail plate and groove. A sterile nail splitter was then used to longitudinally section the nail. This section was removed. No underlying bone was identified. Procedure was performed under. Bacitracin and sterile dressings applied, local wound care instructions were dispensed. Patient was informed of both conservative and future surgical procedures to prevent recurrence Anesthesia was deferred - PT AB SOLUTELY REFUSES - tolerant to pain without issue/complication Location Lateral nail border, TA Debride Nail 6-10 Nail debridement Nail debridem ent performed extensively to reduce/remove overall nail length and girth, subungual debris, and necrotic tissue, by manual and electrical means with use of a nail nipper and/or dremel, to more viable healthy nail plate or bed tissue 6-10. Silver nitrate used for any petechial bleeding as necessary. Patient chooses, no pharmaceutical tx (72294) Keratoma Treatment Parring or Cutting o f Benign Hyperkeratotic Lesion(s) 54724 ( 2-4 Lesions ) - The Benign hyperkeratotic lesions, as described above were pared, and/or cut utilizing a sterile 15 blade, tissue nippers, and/or dremel, Q8 Progress Notes * Cruz LIVINGSTONB:1965 ([age] yo F)Acc No.[id number]:02/22/2024 Progress Note Patient: Bernice PENA Provider: Aspen Gupta DPM :1965 A ge:58 Y S ex:Female Date:02/22/2024 Address:[address] [place], [place] [id number] Pcp:Dr Nishi Banks Subjective: * Chief Complaints: * 1 . Painful nail(s) aggrevated by shoes and causing difficulty standing/walking.. * HPI: P ainful Nails: Pt States Last PCP Visit: D ate: 0 09/17/2023 S kin problems: Nature: t isael, discolored. Location: B /L . Duration: s everal years. Onset/Cause: g radual. Aggravated by: a ny pressure, shoegear. Severity/Quality: m oderate, severe. * ROS: G eneral/Constitutional: Nausea d enies. V omiting d enies. H tramaine Thirst d enies. L oss appetite d enies. C hills d enies. F atigue a dmits.?Fever d enies. N ight Sweats d enies. U nexplained weight loss d enies. U nexplained weight gain d enies. H EENTM: Dentures d enies. D izziness a dmits. G lasses/contacts a dmits. R etinopathy d enies. B lurred/double vision a dmits. T MJ?denies. D ischarge/drainage d enies. I mplants d enies. S ore throat d enies. D ental implants d enies. H haroon of hearing d enies. D ifficulty chewing/swallowing/speaking d enies. N ose bleeds d enies. S ore mouth d enies. ? R espiratory: On Oxygen a dmits. P neumonia/pleurisy d enies.?Bronchitis d enies. E mphysema d enies. C oughing d enies. C ough blood?denies. S hortness of breath a dmits. W heezing d enies. C ardiovascular: Pacemaker d enies. M INFORMATION SYSTEMS SPECIALIST d enies. W PW d enies. C HF d enies. H eart attack d enies. S eptal defect d enies. R apid beat a dmits. C hest pain d enies. A trial Fib. a dmits. M urmur/Palpitations d enies. G astrointestinal: Hemorrhoids a dmits. S tomach/Abdominal pain a dmits. D ark blood stool d enies. I rritable bowel d enies. C onstipation a dmits. D iarrhea d enies. H ematology: Swelling d enies. C lots d enies. V aricose Veins d enies. B ruising a dmits. B leeding problem d enies. G enitourinary: Blood urine d enies. F requent/Painfu/urination/bladder control d enies. K idney stones d enies. I nfection (UTI) d enies. N ephropathy d enies. s ex trans dis (STD) d enies. P rostate d enies. M usculoskeletal: Hammertoes d enies. B unions d enies. B ack Pain a dmits. M uscle Cramps/ Resting a dmits. M uscle cramps / walking a dmits.?Generalized aches and pains d enies. W eakness a dmits. I nteg.: Roldan d enies. S cars d enies. C orns/calluses?denies. I ngrown nails d enies. P ainful nails a dmits. O pen Sores d enies. R ashes d enies. N eurologic: Difficulty sleeping a dmits. B rain disorder d enies. N umbness a dmits. B alance trouble a dmits. C onfusion d enies. F ainting/blackouts d enies. T ingling a dmits. T remors d enies. * Medical History: Objective: * Vitals: * Examination: N ails: NAILS are: Elongated, overgrown, dystrophic, lytic, greater than 3mm thick, discolored and friable with crumbly malodorous subungual debris, with pain on palpation, 1-5 B/L. D ermatologic: SKIN FINDINGS: Skin exam reveals Keratotic lesion(s) located at, Medial plantar, Heel(s), B/L, Dorsal, PIPJ, T4. I ngrown Nail: INSPECTION: Reveals nail incurvation, pain on palpation, groove hypertrophy, groove ischemia, Lateral nail border, TA. G eneral Examination: GENERAL APPEARANCE: p leasant, alert, well nourished, well developed, well hydrated, with good attention to hygene/body habitus, and in no acute distress. ORIENTED: p erson,place, and time. N eurological: SENSORY: n eurological exam reveals intact sensorium, pain sensation normal, vibration sensation intact, pinprick sensation is normal in the lower extremities, anesthesia, burning, tingling, B/L. V ascular: DP PULSES (B): 0/4, B/L. PT PULSES (B): 0/4, B/L. CAPILLARY FILL TIME: 3 secs. per digit, B/L. EDEMA (C): 1/4, B/L, Feet, Ankle(s), Leg(s). ? O rthopedic: MUSCLE STRENGTH: 5 /5 all groups in a symmetrical fashion , B/L. FOOT MORPHOLOGY: Pes Planus structure, B/L. ? Assessment: * Assessment: 1. T inea unguium - B35.1 (Primary) 2 . P ain in right toe(s) - M79.674? 3. P ain in left toe(s) - M79.675 4 . I ngrowing nail - L60.0? 5. S kin disease - L98.9 6 . A therosclerosis of [place] arteries of extremities with intermittent claudication, bilateral legs - I70.213 Plan: * Treatment: * Procedures: D ebride Nail 6-10: Nail debridement N ail debridement performed extensively to reduce/remove overall nail length and girth, subungual debris, and necrotic tissue, by manual and electrical means with use of a nail nipper and/or dremel, to more viable healthy nail plate or bed tissue 6-10. Silver nitrate used for any petechial bleeding as necessary. Patient chooses, no pharmaceutical tx (24876). K eratoma Treatment: Parring or Cutting of Benign Hyperkeratotic Lesion(s) 1 1056 ( 2-4 Lesions ) - The Benign hyperkeratotic lesions, as described above were pared, and/or cut utilizing a sterile 15 blade, tissue nippers, and/or dremel, Q8. N ail Avulsion: Location L ateral nail border, TA. Anesthesia w as deferred - PT ABSOLUTELY REFUSES - tolerant to pain without issue/complication. Procedure A fine sterile elevator was used to loosen the eponychium, nail bed, nail plate and groove. A sterile nail splitter was then used to longitudinally section the nail. This section was removed. No underlying bone was identified. Procedure was performed under. Bacitracin and sterile dressings applied, local wound care instructions were dispensed. Patient was informed of both conservative and future surgical procedures to prevent recurrence. ? * Procedure Codes: 1 1721 DEBRIDE NAIL, 6 OR MORE, Modifiers: XS , 50020 TRIM SKIN LESIONS, 2 TO 4, Modifiers: Q8 , 78833 Avulsion Plate, Modifiers: TA * Follow Up: 4 Months * Images: * The named appointment provid er may or may not be the originator of this progress note, and it is not deemed complete until electronically signed by the appointment provider. Sign off status: Pending * Provider: Aspen Gupta DPM Date: 0 02/22/2024 Generated for Kathleen olivier/Annika/Lele on: 07/28/2024 05:28 AM EST History and Physical Notes * HPI (History of Present Illness) Category Sub-Category Detail Notes Category Not es Painful Nails Pt States Last PCP Visit: Date:: 09/17/2023 Skin problems Nature: tender, discolored Location: B/L Duration: several years Onset/Cause: gradual Aggravated by: any pressure, shoege ar Severity/Quality: moderate, severe Examination Category Sub-Category Detail Notes Category Not es Ingrown Nail INSPECTION: Reveals nail inc urvation, pain on palpation, groove hypertrophy, groove ischemia, Lateral nail border, TA Neurological SENSORY: neurological exa m reveals intact sensorium, pain sensation normal, vibration sensation intact, pinprick sensation is normal in the lower extremities, anesthesia, burning, tingling, B/L Dermatologic SKIN FINDINGS: Skin exam reveal s Keratotic lesion(s) located at, Medial plantar, Heel(s), B/L, Dorsal, PIPJ, T4 Orthopedic FOOT MORPHOLOGY: Pes Planus structure, B/ L MUSCLE STRENGTH: 5/5 all groups in a symmetrical fashion , B/L General Examination GENERAL APPEARANCE: pleasant , alert, well nourished, well developed, well hydrated, with good attention to hygene/body habitus, and in no acute distress ORIENTED: person,place, and ti me Vascular DP PULSES (B): 0/4, B/L PT PULSES (B): 0/4, B/L CAPILLARY FILL TIME: 3 secs. per digit, B/L EDEMA (C): 1/4, B/L, Feet, Ankl e(s), Leg(s) Nails NAILS are: Elongated, overg rown, dystrophic, lytic, greater than 3mm thick, discolored and friable with crumbly malodorous subungual debris, with pain on palpation, 1-5 B/L
--- OUTSIDE RECORDS SUMMARY | 2024-05-25 08:30 | XMS_ITS ---
Author Organization [facility] Address [address] [place] [address] Support Name Relationship Address Phone Sofya Kamara Emergency Contact [address] [place], [place] [phone] Miki Bernice Guarantor Unknown [phone] Care Team Providers Care Director Of Solutions Architecture Name Role Phone Dr Nishi Banks Primary Care Provider Carli Sophy Ray Unavailable [phone] Eddi Fulton Unavailable [phone] Allergies Allergen (clinical drug ingredient) Drug/Non Drug Allergy documented on EMR Reaction Allergy Type Onset Date Status benazepril Benazepril HCl lip swells Drug Allergy Active Encounters Encounter Location Date Provider Diagnosis [facility] [address] [place] [phone] 05/25/2024 Eddi Fulton Plan Of Treatment No Information Progress Notes * Mena MEHTAaDOB:1965 ([age] yo F)Acc No.[id number]:05/25/2024 Progress Note Patient: Bernice PENA Provider: Gaurav Fulton DPM :1965 A ge:58 Y S ex:Female Date:05/25/2024 Address:[address] [place] [address] Pcp:Dr Nishi Banks Subjective: * Chief Complaints: [...] Date: 07/25/2023 Generated for Kathleen Kingsley/Lele on: 07/28/2024 05:28 AM EST
--- OUTSIDE RECORDS SUMMARY | 2025-04-17 09:00 | XMS_ITS ---
Author Organization [facility] Address [address] [place] [address] Support Name Relationship Address Phone Sofya Kamara Emergency Contact [address] [place], [place] [phone] Bernice Mehta Guarantor Unknown [phone] Care Team Providers Care Automotive Design Drafter Name Role Phone Dr Nishi Banks Primary Care Provider Carli Sophy Ray Unavailable [phone] REASON FOR VISIT Cx with reminder call Encounters Encounter Location Date [facility] [address] [address] 04/17/2025 Sophy Washington Plan Of Treatment No Information Progress Notes * Mena MEHTAClaraB:1965 ([age] yo F)Acc No.[id number]:04/17/2025 Progress Note Patient: Bernice PENA Provider: Guanako Washington DPM :1965 A ge:59 Y S ex:Female Date:04/17/2025 Address:[address] [place], [place] [address] Pcp:Dr Nishi Banks Subjective: * Chief Complaints: [...] 0 04/17/2025 Generated for Printi ng/Faxing/eTransmitting on: 1 07/28/2024 05:28 AM EST
[2025-05-28 05:24] LABS: MANUAL DIFF FLAG NO
--- OUTSIDE RECORDS SUMMARY | 2025-05-28 05:29 | XMS_ITS | Patient Health Record ---
Author Organization [facility] Address [address] [place] [address] Support Name Relationship Address Phone Asad Sofya Emergency Contact [address] [place], [place] [phone] Bernice Livingston Guarantor Unknown [phone] Care Team Providers Care Tin Dipper Name Role Phone Dr Nishi Banks Primary Care Provider Sophy Albrecht Unavailable [phone] Allergies Allergen (clinical drug ingredient) Drug/Non Drug [...] Status Risk Notes Problem Plantar fascial fibromatosis (88414572) Plantar fascial fibromatosis (M72.2) Active confirmed Problem Tinea unguium (132362434) Tinea unguium (B35.1) Active confirmed Problem Intermittent claudication of bilateral lower limbs co-occurrent and due to atherosclerosis (49119363954980610 ) Atherosclerosis of [place] arteries of extremities with intermittent claudication, bilateral legs (I70.213) Active confirmed Vital Signs Height 5ft 9in in 01/16/2025 Weight 240 lbs 01/16/2025 BMI 35.44 kg/m2 01/16/2025 Procedures Procedure Date Ordered Date Performed Result Body Sit e 07398-DFELBHO NAIL, 6 OR MORE 01/16/2025 N/A Encounters Encounter Location Date Provider [facility] [address] [address] 01/16/2025 Sophy Washington Pain in right toe(s) M79.674 ; Onychomycosis B35.1 and Pain in left toe(s) M79.675 [facility] [address] [address] 04/16/2025 Sophy Washington Assessments Encounter Date Diagnosis (ICD Code) Assessment Notes Treatment Notes Treatment Clinical Notes Section Notes 01/16/2025 Pain in right toe(s) (ICD-10 - M79.674) 01/16/2025 Onychomycosis (ICD-10 - B35.1) 01/16/2025 Pain in left toe(s) (ICD-10 - M79.675) Plan Of Treatment Pending Test Test Name Order Date 52596-RQVHDJZ NAIL, 6 OR MORE 10/22/2016 89054-GFNYVVB NAIL, 6 OR MORE 10/15/2016 41032-JGIVYYP NAIL, 6 OR MORE 01/16/2025 35105-Udhiyfrt Plate 06/01/2023 55212-Iwhgexxd Plate 10/15/2016 00802-Vwrziytv Plate 10/22/2016 21707-QRYL SKIN LESIONS, 2 TO 4 02/10/20 86663-QGWL SKIN LESIONS, 2 TO 4 06/01/20 Insurance Providers Payer Name Payer Address Payer Phone Subscriber Number Group Number Insured Name Patient Relationship to Insured Coverage Start Date Coverage End Date [facility] SCO Claims [address] [place] [id number] Bernice Livingston Self - patient is the [...] 11/2024 hysterectomy complications, stitch came out 11/18/24 [facility]- fell 09[facility]13/23 [facility]- back 04/2023 [facility] [place] 01/22/23 [facility] 09/21/16
[2025-05-28 05:59] LABS: Hematocrit 27.4 % (37.0-47.0); Hemoglobin 9.0 g/dl (12.0-16.0); Imm Gran Abs Auto 0.01 X10*3/uL (0.00-0.03); Imm Gran Pct Auto 0.2 % (0.0-0.4); Lymphocytes Absolute Auto 1.0 X10*3/uL (1.2-4.9); Mean Corpuscular HGB Conc 32.8 g/dl (31.0-35.0); Mean Corpuscular Hemoglobin 27.4 pg (27.0-33.0); Mean Corpuscular Volume 83.5 fL (80.0-98.0); NRBC Abs Auto 0.000 X10*3/uL (0.0-0.012); NRBC Pct Auto 0.0 /100WBC (0.0-0.2); Platelet Count 201 X10*3/uL (160-400); Red Blood Count 3.28 X10*6/uL (4.20-5.50); White Blood Count 4.5 X10*3/uL (4.8-10.8)
[2025-05-28 06:30] LABS: Anion Gap 14 (12-20); Blood Urea Nitrogen 45 mg/dL (9-16); Calcium 11.0 mg/dL (8.4-10.2); Carbon Dioxide 27 mmol/L (22-29); Chloride 96 mmol/L (96-108); Estimated Glomerular Filt Rate 7; Potassium 4.4 mmol/L (3.3-5.1); Sodium 133 mmol/L (135-145)
== END 2025-05-28 05:26 | disposition home or self-care (01) ==
LOC: HO.MMNH2L 05:25
PROVIDERS: Visit Provider Physician Assistant Medical
DX: N18.6 End stage renal disease (principal); I48.91 Unspecified atrial fibrillation
CPT/HCPCS: 36415; 80048; 85025

== ENCOUNTER 2025-05-29 14:19 | Outpatient (REF) | payer BC, MEDICARE, SELFPAY ==
--- OUTSIDE RECORDS SUMMARY | 2024-02-22 08:45 | XMS_ITS ---
Author Organization [facility] Address [address] [place] [address] Support Name Relationship Address Phone Asad Sofya Emergency Contact [address] [place], [place] [phone] Bernice Livingston Guarantor Unknown [phone] Care Team Providers Care Ergonomics Engineer Name Role Phone Dr Nishi Banks Primary Care Provider Carli Sophy Ray Unavailable [phone] Kaleb Lenz Unavailable [phone] REASON FOR VISIT Painful nail(s) aggrevated by shoes and causing difficulty standing/walking. Encounters Encounter Location Date [facility] [address] [place] [address] 02/22/2024 Kaleb Lenz Tinea unguium B35.1 ; Pain in right toe(s) M79.674 ; Pain in left toe(s) M79.675 ; Ingrowing nail L60.0 ; Skin disease L98.9 and Atherosclerosis of [place] arteries of extremities with intermittent claudication, bilateral legs I70.213 Assessments Encounter Date Diagnosis (ICD Code) Assessment Notes Treatment Notes Treatment Clinical Notes Section Notes 02/22/2024 Tinea unguium (ICD-10 - B35.1) 02/22/2024 Pain in right toe(s) (ICD-10 - M79.674) 02/22/2024 Pain in left toe(s) (ICD-10 - M79.675) 02/22/2024 Ingrowing nail (ICD-10 - L60.0) 02/22/2024 Skin disease (ICD-10 - L98.9) 02/22/2024 Atherosclerosis of [place] arteries of extremities with intermittent claudication, bilateral [...] as necessary. Patient chooses, no pharmaceutical tx (59740) Keratoma Treatment Parring or Cutting o f Benign Hyperkeratotic Lesion(s) 46973 ( 2-4 Lesions ) - The Benign hyperkeratotic lesions, as described above were pared, and/or cut utilizing a sterile 15 blade, tissue nippers, and/or dremel, Q8 Progress Notes * Cruz LIVINGSTONB:1965 ([age] yo F)Acc No.[id number]:02/22/2024 Progress Note Patient: Bernice PENA Provider: Aspen Gupta DPM :1965 A ge:58 Y S ex:Female Date:02/22/2024 Address:[address] [place], [place] [id number] Pcp:Dr Nishi Banks Subjective: * Chief Complaints: [...] d enies. V omiting d enies. H traamine Thirst d enies. L oss appetite d [...] enies. C ardiovascular: Pacemaker d enies. M CONCRETE BLOCK LAYER d enies. W PW d enies. C [...] - L98.9 6 . A therosclerosis of [place] arteries of extremities with intermittent claudication, bilateral [...] as necessary. Patient chooses, no pharmaceutical tx (61882). K eratoma Treatment: Parring or Cutting of [...] NAIL, 6 OR MORE, Modifiers: XS , 63323 TRIM SKIN LESIONS, 2 TO 4, Modifiers: Q8 , 82315 Avulsion Plate, Modifiers: TA * Follow Up: 4 Months * Images: * The named appointment provid er may or may not be the originator of this progress note, and it is not deemed complete until electronically signed by the appointment provider. Sign off status: Pending * Provider: Aspen Gupta DPM Date: 0 02/22/2024 Generated for Kathleen olivier/Annika/Lele on: 07/29/2024 03:59 PM EST History and Physical Notes * HPI [...]
--- OUTSIDE RECORDS SUMMARY | 2024-05-25 08:30 | XMS_ITS ---
Author Organization [facility] Address [address] [place] [address] Support Name Relationship Address Phone Sofya Kamara Emergency Contact [address] [place], [place] [phone] Miki Bernice Guarantor Unknown [phone] Care Team Providers Care Ophthalmic Aide Name Role Phone Dr Nishi Banks Primary Care Provider Carli Sophy Ray Unavailable [phone] Eddi Fulton Unavailable [phone] Allergies Allergen (clinical drug ingredient) Drug/Non Drug Allergy documented on EMR Reaction Allergy Type Onset Date Status benazepril Benazepril HCl lip swells Drug Allergy Active Encounters Encounter Location Date Provider Diagnosis [facility] [address] [place] [address] 05/25/2024 Eddi Fulton Plan Of Treatment No Information Progress Notes * Mena MEHTAaDOB:1965 ([age] yo F)Acc No.[id number]:05/25/2024 Progress Note Patient: Bernice PENA Provider: Gaurav Fulton DPM :1965 A ge:58 Y S ex:Female Date:05/25/2024 Address:[address] [place] [address] Pcp:Dr Nishi Banks Subjective: * Chief Complaints: [...] Date: 07/25/2023 Generated for Kathleen Kingsley/Lele on: 07/29/2024 03:59 PM EST
--- OUTSIDE RECORDS SUMMARY | 2025-04-17 09:00 | XMS_ITS ---
Author Organization [facility] Address [address] [place] [address] Support Name Relationship Address Phone Sofya Kamara Emergency Contact [address] [place], [place] [phone] Bernice Mehta Guarantor Unknown [phone] Care Team Providers Care Laborer Tree Tapping Name Role Phone Dr Nishi Banks Primary Care Provider Carli Sophy Ray Unavailable [phone] REASON FOR VISIT Cx with reminder call Encounters Encounter Location Date [facility] [address] [address] 04/17/2025 Sophy Washington Plan Of Treatment No Information Progress Notes * Mena MEHTAClaraB:1965 ([age] yo F)Acc No.[id number]:04/17/2025 Progress Note Patient: Bernice PENA Provider: Guanako Washington DPM :1965 A ge:59 Y S ex:Female Date:04/17/2025 Address:[address] [place], [place] [address] Pcp:Dr Nishi Banks Subjective: * Chief Complaints: [...] 0 04/17/2025 Generated for Printi ng/Faxing/eTransmitting on: 07/29/2024 03:59 PM EST
[2025-05-29 14:22] LABS: MANUAL DIFF FLAG NO
[2025-05-29 14:34] LABS: Hematocrit 27.2 % (37.0-47.0); Hemoglobin 9.0 g/dl (12.0-16.0); Imm Gran Abs Auto 0.01 X10*3/uL (0.00-0.03); Imm Gran Pct Auto 0.3 % (0.0-0.4); Lymphocytes Absolute Auto 0.6 X10*3/uL (1.2-4.9); Mean Corpuscular HGB Conc 33.1 g/dl (31.0-35.0); Mean Corpuscular Hemoglobin 28.1 pg (27.0-33.0); Mean Corpuscular Volume 85.0 fL (80.0-98.0); NRBC Abs Auto 0.000 X10*3/uL (0.0-0.012); NRBC Pct Auto 0.0 /100WBC (0.0-0.2); Platelet Count 201 X10*3/uL (160-400); Red Blood Count 3.20 X10*6/uL (4.20-5.50); White Blood Count 3.8 X10*3/uL (4.8-10.8)
[2025-05-29 14:54] LABS: Anion Gap 12 (12-20); Blood Urea Nitrogen 36 mg/dL (9-16); Calcium 10.4 mg/dL (8.4-10.2); Carbon Dioxide 29 mmol/L (22-29); Chloride 99 mmol/L (96-108); Estimated Glomerular Filt Rate 9; Potassium 4.2 mmol/L (3.3-5.1); Sodium 136 mmol/L (135-145)
[2025-05-29 15:08] LABS: Procalcitonin 0.38 ng/mL
--- OUTSIDE RECORDS SUMMARY | 2025-05-29 16:00 | XMS_ITS | Patient Health Record ---
Author Organization [facility] Address [address] [place] [address] Support Name Relationship Address Phone Asad Sofya Emergency Contact [address] [place], [place] [phone] Bernice Livingston Guarantor Unknown [phone] Care Team Providers Care Specialty Sales Consultant Name Role Phone Dr Nishi Banks Primary Care Provider Sophy Albrecht Unavailable [phone] Allergies Allergen (clinical drug ingredient) Drug/Non Drug [...] Status Risk Notes Problem Plantar fascial fibromatosis (40756026) Plantar fascial fibromatosis (M72.2) Active confirmed Problem Tinea unguium (181061929) Tinea unguium (B35.1) Active confirmed Problem Intermittent claudication of bilateral lower limbs co-occurrent and due to atherosclerosis (11408164910346888 ) Atherosclerosis of [place] arteries of extremities with intermittent claudication, bilateral legs (I70.213) Active confirmed Vital Signs Height 5ft 9in in 01/16/2025 Weight 240 lbs 01/16/2025 BMI 35.44 kg/m2 01/16/2025 Procedures Procedure Date Ordered Date Performed Result Body Sit e 36706-SEKMBTI NAIL, 6 OR MORE 01/16/2025 N/A Encounters Encounter Location Date Provider [facility] [address] [address] 01/16/2025 Sophy Washington Pain in right toe(s) M79.674 ; Onychomycosis B35.1 and Pain in left toe(s) M79.675 [facility] [address] [address] 04/16/2025 Sophy Washington Assessments Encounter Date Diagnosis (ICD Code) Assessment Notes Treatment Notes Treatment Clinical Notes Section Notes 01/16/2025 Pain in right toe(s) (ICD-10 - M79.674) 01/16/2025 Onychomycosis (ICD-10 - B35.1) 01/16/2025 Pain in left toe(s) (ICD-10 - M79.675) Plan Of Treatment Pending Test Test Name Order Date 96585-XDBUKGF NAIL, 6 OR MORE 10/22/2016 13041-CNXGCFK NAIL, 6 OR MORE 10/15/2016 91886-XQPAGZA NAIL, 6 OR MORE 01/16/2025 85335-Fojdobje Plate 06/01/2023 94952-Bnrnzwow Plate 10/15/2016 42954-Yhalimbt Plate 10/22/2016 82171-OJZR SKIN LESIONS, 2 TO 4 02/10/20 94770-QIKM SKIN LESIONS, 2 TO 4 06/01/20 Insurance Providers Payer Name Payer Address Payer Phone Subscriber Number Group Number Insured Name Patient Relationship to Insured Coverage Start Date Coverage End Date [facility] SCO Claims [address] [place] [id number] Bernice Livingston Self - patient is the [...] 11/18/24 [facility]- fell [facility]/23 [facility]- back 04/2023 [facility] [place] 01/22/23 [facility] 09/21/16
== END 2025-05-29 14:20 | disposition home or self-care (01) ==
LOC: HO.MMNH2L 14:19
PROVIDERS: Visit Provider Physician Assistant Medical
DX: I12.9 Hypertensive chronic kidney disease with stage 1 through stage 4 chronic kidney disease, or unspecified chronic kidney disease (principal); N18.6 End stage renal disease
CPT/HCPCS: 36415; 80048; 84145; 85025

== ENCOUNTER 2025-05-31 16:03 | Outpatient (REF) | payer BC, MEDICARE, SELFPAY ==
--- OUTSIDE RECORDS SUMMARY | 2024-02-22 08:45 | XMS_ITS ---
Author Organization [facility] Address [address] [place] [address] Support Name Relationship Address Phone Asad Sofya Emergency Contact [address] [place], [place] [phone] Bernice Livingston Guarantor Unknown [phone] Care Team Providers Care Lye Boiler Name Role Phone Dr Nishi Banks Primary Care Provider Carli Sophy Ray Unavailable [phone] Kaleb Lenz Unavailable [phone] REASON FOR VISIT Painful nail(s) aggrevated by shoes and causing difficulty standing/walking. Encounters Encounter Location Date [facility] [address] [place] [address] 02/22/2024 Kaleb Lenz Tinea unguium B35.1 ; Pain in right toe(s) M79.674 ; Pain in left toe(s) M79.675 ; Ingrowing nail L60.0 ; Skin disease L98.9 and Atherosclerosis of [place] arteries of extremities with intermittent claudication, bilateral legs I70.213 Assessments Encounter Date Diagnosis (ICD Code) Assessment Notes Treatment Notes Treatment Clinical Notes Section Notes 02/22/2024 Tinea unguium (ICD-10 - B35.1) 02/22/2024 Pain in right toe(s) (ICD-10 - M79.674) 02/22/2024 Pain in left toe(s) (ICD-10 - M79.675) 02/22/2024 Ingrowing nail (ICD-10 - L60.0) 02/22/2024 Skin disease (ICD-10 - L98.9) 02/22/2024 Atherosclerosis of [place] arteries of extremities with intermittent claudication, bilateral [...] as necessary. Patient chooses, no pharmaceutical tx (08077) Keratoma Treatment Parring or Cutting o f Benign Hyperkeratotic Lesion(s) 92876 ( 2-4 Lesions ) - The Benign hyperkeratotic lesions, as described above were pared, and/or cut utilizing a sterile 15 blade, tissue nippers, and/or dremel, Q8 Progress Notes * Cruz LIVINGSTONB:1965 ([age] yo F)Acc No.[id number]:02/22/2024 Progress Note Patient: Bernice PENA Provider: Aspen Gupta DPM :1965 A ge:58 Y S ex:Female Date:02/22/2024 Address:[address] [place], [place] [id number] Pcp:Dr Nishi Banks Subjective: * Chief Complaints: [...] enies. C ardiovascular: Pacemaker d enies. M CHEF FRENCH d enies. W PW d enies. C [...] - L98.9 6 . A therosclerosis of [place] arteries of extremities with intermittent claudication, bilateral [...] as necessary. Patient chooses, no pharmaceutical tx (69839). K eratoma Treatment: Parring or Cutting of [...] NAIL, 6 OR MORE, Modifiers: XS , 64132 TRIM SKIN LESIONS, 2 TO 4, Modifiers: Q8 , 86952 Avulsion Plate, Modifiers: TA * Follow Up: 4 Months * Images: * The named appointment provid er may or may not be the originator of this progress note, and it is not deemed complete until electronically signed by the appointment provider. Sign off status: Pending * Provider: Aspen Gupta DPM Date: 0 02/22/2024 Generated for Kathleen olivier/Annika/Lele on: 07/31/2024 06:44 PM EST History and Physical Notes * [...]
--- OUTSIDE RECORDS SUMMARY | 2024-05-25 08:30 | XMS_ITS ---
Author Organization [facility] Address [address] [place] [address] Support Name Relationship Address Phone Sofya Kamara Emergency Contact [address] [place], [place] [phone] Miki Bernice Guarantor Unknown [phone] Care Team Providers Care Insulation Cutter And Former Name Role Phone Dr Nishi Banks Primary Care Provider Carli Sophy Ray Unavailable [phone] Eddi Fulton Unavailable [phone] Allergies Allergen (clinical drug ingredient) Drug/Non Drug Allergy documented on EMR Reaction Allergy Type Onset Date Status benazepril Benazepril HCl lip swells Drug Allergy Active Encounters Encounter Location Date Provider Diagnosis [facility] [address] [place] [phone] 05/25/2024 Eddi Fulton Plan Of Treatment No Information Progress Notes * Mena MEHTAaDOB:1965 ([age] yo F)Acc No.[id number]:05/25/2024 Progress Note Patient: Bernice PENA Provider: Gaurav Fulton DPM :1965 A ge:58 Y S ex:Female Date:05/25/2024 Address:[address] [place] [address] Pcp:Dr Nishi Banks Subjective: * Chief Complaints: * * Medical History: A nemia, Arthritis, Back,Hip,and Knee pain, Chicken pox, High blood pressure, Kidney disease - on dialysis, Mumps, Stomach ulcer, TIA, Transfusions, Fistula right arm, Anxiety, Cataracts, Depression, Kidney disease, Numbness, Osteoporosis, Stroke. * Allergies: B enazepril HCl: lip swells. Objective: * Vitals: Assessment: Plan: * Treatment: * Images: * The named appointment provid er may or may not be the originator of this progress note, and it is not deemed complete until electronically signed by the appointment provider. Sign off status: Pending * Provider: Gaurav Fulton DPM Date: 07/25/2023 Generated for Kathleen Kingsley/Lele on: 07/31/2024 06:44 PM EST
--- OUTSIDE RECORDS SUMMARY | 2025-04-17 09:00 | XMS_ITS ---
Author Organization [facility] Address [address] [place] [address] Support Name Relationship Address Phone Sofya Kamara Emergency Contact [address] [place], [place] [phone] Bernice Mehta Guarantor Unknown [phone] Care Team Providers Care High School Social Science Teacher Name Role Phone Dr Nihsi Banks Primary Care Provider Carli Sophy Ray Unavailable [phone] REASON FOR VISIT Cx with reminder call Encounters Encounter Location Date Provider [facility] [address] [address] 04/17/2025 Sophy Washington Plan Of Treatment No Information Progress Notes * Mena MEHTAClaraB:1965 ([age] yo F)Acc No.[id number]:04/17/2025 Progress Note Patient: Bernice PENA Provider: Guanako Washington DPM :1965 A ge:59 Y S ex:Female Date:04/17/2025 Address:[address] [place], [place] [address] Pcp:Dr Nishi Banks Subjective: * Chief Complaints: [...] 0 04/17/2025 Generated for Printi ng/Faxing/eTransmitting on: 07/31/2024 06:43 PM EST
--- OUTSIDE RECORDS SUMMARY | 2025-05-31 18:44 | XMS_ITS | Patient Health Record ---
Author Organization [facility] Address [address] [place] [address] Support Name Relationship Address Phone Asad Sofya Emergency Contact [address] [place], [place] [phone] Bernice Livingston Guarantor Unknown [phone] Care Team Providers Care Crop Farmers Name Role Phone Dr Nishi Banks Primary Care Provider Sophy Albrecht Unavailable [phone] Allergies Allergen (clinical drug ingredient) Drug/Non Drug [...] Status Risk Notes Problem Plantar fascial fibromatosis (56036480) Plantar fascial fibromatosis (M72.2) Active confirmed Problem Tinea unguium (904305425) Tinea unguium (B35.1) Active confirmed Problem Intermittent claudication of bilateral lower limbs co-occurrent and due to atherosclerosis (35461881928289328 ) Atherosclerosis of [place] arteries of extremities with intermittent claudication, bilateral legs (I70.213) Active confirmed Vital Signs Height 5ft 9in in 01/16/2025 Weight 240 lbs 01/16/2025 BMI 35.44 kg/m2 01/16/2025 Procedures Procedure Date Ordered Date Performed Result Body Sit e 28212-AZVXJRT NAIL, 6 OR MORE 01/16/2025 N/A Encounters Encounter Location Date Provider [facility] [address] [address] 01/16/2025 Sophy Washington Pain in right toe(s) M79.674 ; Onychomycosis B35.1 and Pain in left toe(s) M79.675 [facility] [address] [address] 04/16/2025 Sophy Washington Assessments Encounter Date Diagnosis (ICD Code) Assessment Notes Treatment Notes Treatment Clinical Notes Section Notes 01/16/2025 Pain in right toe(s) (ICD-10 - M79.674) 01/16/2025 Onychomycosis (ICD-10 - B35.1) 01/16/2025 Pain in left toe(s) (ICD-10 - M79.675) Plan Of Treatment Pending Test Test Name Order Date 44485-SIHHFRP NAIL, 6 OR MORE 10/22/2016 17587-KNDHBUX NAIL, 6 OR MORE 10/15/2016 57591-GLSJWWV NAIL, 6 OR MORE 01/16/2025 76065-Almkdhfj Plate 06/01/2023 32143-Zvebiwmj Plate 10/15/2016 91673-Pwijkfot Plate 10/22/2016 23766-OSXR SKIN LESIONS, 2 TO 4 02/10/20 63827-IMQZ SKIN LESIONS, 2 TO 4 06/01/20 Insurance Providers Payer Name Payer Address Payer Phone Subscriber Number Group Number Insured Name Patient Relationship to Insured Coverage Start Date Coverage End Date [facility] SCO Claims [address] [place] [id number] Bernice Livingston Self - patient is the [...] 11/18/24 [facility]- fell [facility]23 [facility]2023 [facility] [place] [facility] 01/22/23 [facility] 09/21/16
[2025-06-01 08:51] LABS: Chlamydia pneumoniae PCR Not Detected (Not Detect.); Coronavirus 229E PCR Not Detected (Not Detect.); Coronavirus HKU1 PCR Not Detected (Not Detect.); Coronavirus NL63 PCR Not Detected (Not Detect.); Coronavirus OC43 PCR Not Detected (Not Detect.); RSV PCR Not Detected (Not Detect.); Rhino/Enterovirus PCR Not Detected (Not Detect.)
[2025-06-01 09:00] LABS: Influenza A H1 PCR Not Detected (Not Detect.); Influenza A H1-2009 PCR Not Detected (Not Detect.); Influenza A H3 PCR Not Detected (Not Detect.); SARS-CoV-2 PCR Not Detected (Not Detect.)
== END 2025-05-31 16:04 | disposition home or self-care (01) ==
LOC: HO.MMNH2L 16:03
PROVIDERS: Visit Provider Physician Assistant Medical
DX: I12.0 Hypertensive chronic kidney disease with stage 5 chronic kidney disease or end stage renal disease (principal); N18.6 End stage renal disease
CPT/HCPCS: 87633

== ENCOUNTER 2025-06-04 06:52 | Outpatient (REF) | payer BC, MEDICARE, SELFPAY ==
--- OUTSIDE RECORDS SUMMARY | 2024-02-22 08:45 | XMS_ITS ---
Author Organization [facility] Address [address] [place] [address] Support Name Relationship Address Phone Asad Sofya Emergency Contact [address] [place], [place] [phone] Bernice Livingston Guarantor Unknown [phone] Care Team Providers Care Toll Patrolman Name Role Phone Dr Nishi Banks Primary Care Provider Carli Sophy Ray Unavailable [phone] Kaleb Lenz Unavailable [phone] REASON FOR VISIT Painful nail(s) aggrevated by shoes and causing difficulty standing/walking. Encounters Encounter Location Date [facility] [address] [place] [address] 02/22/2024 Kaleb Lenz Tinea unguium B35.1 ; Pain in right toe(s) M79.674 ; Pain in left toe(s) M79.675 ; Ingrowing nail L60.0 ; Skin disease L98.9 and Atherosclerosis of [place] arteries of extremities with intermittent claudication, bilateral legs I70.213 Assessments Encounter Date Diagnosis (ICD Code) Assessment Notes Treatment Notes Treatment Clinical Notes Section Notes 02/22/2024 Tinea unguium (ICD-10 - B35.1) 02/22/2024 Pain in right toe(s) (ICD-10 - M79.674) 02/22/2024 Pain in left toe(s) (ICD-10 - M79.675) 02/22/2024 Ingrowing nail (ICD-10 - L60.0) 02/22/2024 Skin disease (ICD-10 - L98.9) 02/22/2024 Atherosclerosis of [place] arteries of extremities with intermittent claudication, bilateral [...] as necessary. Patient chooses, no pharmaceutical tx (35119) Keratoma Treatment Parring or Cutting o f Benign Hyperkeratotic Lesion(s) 06829 ( 2-4 Lesions ) - The Benign hyperkeratotic lesions, as described above were pared, and/or cut utilizing a sterile 15 blade, tissue nippers, and/or dremel, Q8 Progress Notes * Cruz LIVINGSTONB:1965 ([age] yo F)Acc No.[id number]:02/22/2024 Progress Note Patient: Bernice PENA Provider: Aspen Gupta DPM :1965 A ge:58 Y S ex:Female Date:02/22/2024 Address:[address] [place], [place] [id number] Pcp:Dr Nishi Banks Subjective: * Chief Complaints: [...] enies. C ardiovascular: Pacemaker d enies. M RADIO OPERATOR GROUND d enies. W PW d enies. C [...] - L98.9 6 . A therosclerosis of [place] arteries of extremities with intermittent claudication, bilateral [...] as necessary. Patient chooses, no pharmaceutical tx (54164). K eratoma Treatment: Parring or Cutting of [...] NAIL, 6 OR MORE, Modifiers: XS , 57704 TRIM SKIN LESIONS, 2 TO 4, Modifiers: Q8 , 05167 Avulsion Plate, Modifiers: TA * Follow Up: 4 Months * Images: * The named appointment provid er may or may not be the originator of this progress note, and it is not deemed complete until electronically signed by the appointment provider. Sign off status: Pending * Provider: Aspen Gupta DPM Date: 0 02/22/2024 Generated for Kathleen olivier/Annika/Lele on: 08/04/2024 06:56 AM EST History and Physical Notes * [...]
--- OUTSIDE RECORDS SUMMARY | 2024-05-25 08:30 | XMS_ITS ---
Author Organization [facility] Address [address] [place] [address] Support Name Relationship Address Phone Sofya Kamara Emergency Contact [address] [place], [place] [phone] Mkii Bernice Guarantor Unknown [phone] Care Team Providers Care Store Standards Associate Name Role Phone Dr Nishi Banks Primary Care Provider Carli Sophy Ray Unavailable [phone] Eddi Fulton Unavailable [phone] Allergies Allergen (clinical drug ingredient) Drug/Non Drug Allergy documented on EMR Reaction Allergy Type Onset Date Status benazepril Benazepril HCl lip swells Drug Allergy Active Encounters Encounter Location Date Provider Diagnosis [facility] [address] [place] [address] 05/25/2024 Eddi Fulton Plan Of Treatment No Information Progress Notes * Mena MEHTAaDOB:1965 ([age] yo F)Acc No.[id number]:05/25/2024 Progress Note Patient: Bernice PENA Provider: Gaurav Fulton DPM :1965 A ge:58 Y S ex:Female Date:05/25/2024 Address:[address] [place] [address] Pcp:Dr Nishi Banks Subjective: * Chief Complaints: [...] Date: 07/25/2023 Generated for Kathleen Kingsley/Lele on: 08/04/2024 06:56 AM EST
--- OUTSIDE RECORDS SUMMARY | 2025-04-17 09:00 | XMS_ITS ---
Author Organization [facility] Address [address] [place] [address] Support Name Relationship Address Phone Sofya Kamara Emergency Contact [address] [place], [place] [phone] Bernice Mehta Guarantor Unknown [phone] Care Team Providers Care Glass Artist Name Role Phone Dr Nishi Banks Primary Care Provider Carli Sophy Ray Unavailable [phone] REASON FOR VISIT Cx with reminder call Encounters Encounter Location Date Provider [facility] [address] [address] 04/17/2025 Sophy Washington Plan Of Treatment No Information Progress Notes * Mena MEHTAClaraB:1965 ([age] yo F)Acc No.[id number]:04/17/2025 Progress Note Patient: Bernice PENA Provider: Guanako Washington DPM :1965 A ge:59 Y S ex:Female Date:04/17/2025 Address:[address] [place], [place] [address] Pcp:Dr Nishi Banks Subjective: * Chief Complaints: [...] 0 04/17/2025 Generated for Printi ng/Faxing/eTransmitting on: 08/04/2024 06:56 AM EST
[2025-06-04 05:43] LABS: MANUAL DIFF FLAG NO
[2025-06-04 05:58] LABS: Hematocrit 26.6 % (37.0-47.0); Hemoglobin 8.6 g/dl (12.0-16.0); Imm Gran Abs Auto 0.01 X10*3/uL (0.00-0.03); Imm Gran Pct Auto 0.3 % (0.0-0.4); Lymphocytes Absolute Auto 0.6 X10*3/uL (1.2-4.9); Mean Corpuscular HGB Conc 32.3 g/dl (31.0-35.0); Mean Corpuscular Hemoglobin 27.6 pg (27.0-33.0); Mean Corpuscular Volume 85.3 fL (80.0-98.0); NRBC Abs Auto 0.000 X10*3/uL (0.0-0.012); NRBC Pct Auto 0.0 /100WBC (0.0-0.2); Platelet Count 176 X10*3/uL (160-400); Red Blood Count 3.12 X10*6/uL (4.20-5.50); White Blood Count 3.9 X10*3/uL (4.8-10.8)
--- OUTSIDE RECORDS SUMMARY | 2025-06-04 06:56 | XMS_ITS | Patient Health Record ---
Author [facility] Address [address] [place] [address] Support Name Relationship Address Phone Asad Sofya Emergency Contact [address] [place], [place] [phone] Bernice Livingston Guarantor Unknown [phone] Care Team Providers Care Records Assistant Name Role Phone Dr Nishi Banks Primary Care Provider Sophy Albrecht Unavailable [phone] Allergies Allergen (clinical drug ingredient) Drug/Non Drug [...] Status Risk Notes Problem Plantar fascial fibromatosis (73550332) Plantar fascial fibromatosis (M72.2) Active confirmed Problem Tinea unguium (589958221) Tinea unguium (B35.1) Active confirmed Problem Intermittent claudication of bilateral lower limbs co-occurrent and due to atherosclerosis (07138275403490162 ) Atherosclerosis of [place] arteries of extremities with intermittent claudication, bilateral legs (I70.213) Active confirmed Vital Signs Height 5ft 9in in 01/16/2025 Weight 240 lbs 01/16/2025 BMI 35.44 kg/m2 01/16/2025 Procedures Procedure Date Ordered Date Performed Result Body Sit e 68449-LFZNTWP NAIL, 6 OR MORE 01/16/2025 N/A Encounters Encounter Location Date Provider [facility] [address] [address] 01/16/2025 Sophy Washington Pain in right toe(s) M79.674 ; Onychomycosis B35.1 and Pain in left toe(s) M79.675 [facility] [address] [address] 04/16/2025 Sophy Washington Assessments Encounter Date Diagnosis (ICD Code) Assessment Notes Treatment Notes Treatment Clinical Notes Section Notes 01/16/2025 Pain in right toe(s) (ICD-10 - M79.674) 01/16/2025 Onychomycosis (ICD-10 - B35.1) 01/16/2025 Pain in left toe(s) (ICD-10 - M79.675) Plan Of Treatment Pending Test Test Name Order Date 98262-BGBWOHZ NAIL, 6 OR MORE 10/22/2016 85419-DUJYJIS NAIL, 6 OR MORE 10/15/2016 19625-PAGVVTF NAIL, 6 OR MORE 01/16/2025 99986-Tdbaevty Plate 06/01/2023 89084-Lfbjassq Plate 10/15/2016 98738-Nulvdfgo Plate 10/22/2016 54722-DJUE SKIN LESIONS, 2 TO 4 02/10/20 16283-NSTI SKIN LESIONS, 2 TO 4 06/01/20 Insurance Providers Payer Name Payer Address Payer Phone Subscriber Number Group Number Insured Name Patient Relationship to Insured Coverage Start Date Coverage End Date [facility] SCO Claims [address] [place] [id number] Bernice Livingston Self - patient is the [...]
[2025-06-04 07:09] LABS: Anion Gap 15 (12-20); Blood Urea Nitrogen 47 mg/dL (9-16); Calcium 10.8 mg/dL (8.4-10.2); Carbon Dioxide 26 mmol/L (22-29); Chloride 104 mmol/L (96-108); Potassium 3.8 mmol/L (3.3-5.1); Sodium 141 mmol/L (135-145)
[2025-06-04 07:16] LABS: Estimated Glomerular Filt Rate 6
== END 2025-06-04 06:53 | disposition home or self-care (01) ==
LOC: HO.MMNH2L 06:52
PROVIDERS: Visit Provider Physician Assistant Medical
DX: N18.6 End stage renal disease (principal); I48.91 Unspecified atrial fibrillation
CPT/HCPCS: 36415; 80048; 85025

== ENCOUNTER 2025-06-18 08:40 | Outpatient (REF) | payer BC, MEDICARE, SELFPAY ==
--- OUTSIDE RECORDS SUMMARY | 2024-02-22 08:45 | XMS_ITS ---
Author Organization [facility] Address [address] [place] [address] Support Name Relationship Address Phone Asad Sofya Emergency Contact [address] [place], [place] [phone] Bernice Livingston Guarantor Unknown [phone] Care Team Providers Care Head Operator Name Role Phone Dr Nishi Banks Primary Care Provider Carli Sophy Ray Unavailable [phone] Kaleb Lenz Unavailable [phone] REASON FOR VISIT Painful nail(s) aggrevated by shoes and causing difficulty standing/walking. Encounters Encounter Location Date [facility] [address] [place] [address] 02/22/2024 Kaleb Lenz Tinea unguium B35.1 ; Pain in right toe(s) M79.674 ; Pain in left toe(s) M79.675 ; Ingrowing nail L60.0 ; Skin disease L98.9 and Atherosclerosis of [place] arteries of extremities with intermittent claudication, bilateral legs I70.213 Assessments Encounter Date Diagnosis (ICD Code) Assessment Notes Treatment Notes Treatment Clinical Notes Section Notes 02/22/2024 Tinea unguium (ICD-10 - B35.1) 02/22/2024 Pain in right toe(s) (ICD-10 - M79.674) 02/22/2024 Pain in left toe(s) (ICD-10 - M79.675) 02/22/2024 Ingrowing nail (ICD-10 - L60.0) 02/22/2024 Skin disease (ICD-10 - L98.9) 02/22/2024 Atherosclerosis of [place] arteries of extremities with intermittent claudication, bilateral [...] as necessary. Patient chooses, no pharmaceutical tx (95208) Keratoma Treatment Parring or Cutting o f Benign Hyperkeratotic Lesion(s) 12334 ( 2-4 Lesions ) - The Benign hyperkeratotic lesions, as described above were pared, and/or cut utilizing a sterile 15 blade, tissue nippers, and/or dremel, Q8 Progress Notes * Cruz LIVINGSTONB:1965 ([age] yo F)Acc No.[id number]:02/22/2024 Progress Note Patient: Bernice PENA Provider: Aspen Gupta DPM :1965 A ge:58 Y S ex:Female Date:02/22/2024 Address:[address] [place], [place] [id number] Pcp:Dr Nishi Banks Subjective: * Chief Complaints: [...] enies. C ardiovascular: Pacemaker d enies. 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 W PW d enies. C [...] - L98.9 6 . A therosclerosis of [place] arteries of extremities with intermittent claudication, bilateral [...] as necessary. Patient chooses, no pharmaceutical tx (09118). K eratoma Treatment: Parring or Cutting of [...] NAIL, 6 OR MORE, Modifiers: XS , 00781 TRIM SKIN LESIONS, 2 TO 4, Modifiers: Q8 , 85557 Avulsion Plate, Modifiers: TA * Follow Up: 4 Months * Images: * The named appointment provid er may or may not be the originator of this progress note, and it is not deemed complete until electronically signed by the appointment provider. Sign off status: Pending * Provider: Aspen Gupta DPM Date: 0 02/22/2024 Generated for Kathleen olivier/Annika/Lele on: 1 08/19/2024 09:17 AM EST History and Physical Notes * [...]
--- OUTSIDE RECORDS SUMMARY | 2025-04-17 09:00 | XMS_ITS ---
Author Organization [facility] Address [address] [place] [address] Support Name Relationship Address Phone Sofya Kamara Emergency Contact [address] [place], [place] [phone] Bernice Mehta Guarantor Unknown [phone] Care Team Providers Care Rag Collector Name Role Phone Dr Nishi Banks Primary Care Provider Carli Sophy Ray Unavailable [phone] REASON FOR VISIT Cx with reminder call Encounters Encounter Location Date Provider [facility] [address] [address] 04/17/2025 Sophy Washington Plan Of Treatment No Information Progress Notes * Mena MEHTAClaraB:1965 ([age] yo F)Acc No.[id number]:04/17/2025 Progress Note Patient: Bernice PENA Provider: Guanako Washington DPM :1965 A ge:59 Y S ex:Female Date:04/17/2025 Address:[address] [place], [place] [address] Pcp:Dr Nishi Banks Subjective: * Chief Complaints: [...] 04/17/2025 Generated for Printi ng/Faxing/eTransmitting on: 1 08/19/2024 09:16 AM EST
[2025-06-18 07:45] LABS: MANUAL DIFF FLAG NO
[2025-06-18 07:59] LABS: Hematocrit 26.8 % (37.0-47.0); Hemoglobin 9.2 g/dl (12.0-16.0); Imm Gran Abs Auto 0.00 X10*3/uL (0.00-0.03); Imm Gran Pct Auto 0.0 % (0.0-0.4); Lymphocytes Absolute Auto 1.0 X10*3/uL (1.2-4.9); Mean Corpuscular HGB Conc 34.3 g/dl (31.0-35.0); Mean Corpuscular Hemoglobin 28.0 pg (27.0-33.0); Mean Corpuscular Volume 81.7 fL (80.0-98.0); NRBC Abs Auto 0.000 X10*3/uL (0.0-0.012); NRBC Pct Auto 0.0 /100WBC (0.0-0.2); Platelet Count 155 X10*3/uL (160-400); Red Blood Count 3.28 X10*6/uL (4.20-5.50); White Blood Count 3.0 X10*3/uL (4.8-10.8)
[2025-06-18 09:26] LABS: Anion Gap 14 (12-20); Blood Urea Nitrogen 56 mg/dL (9-16); Calcium 10.0 mg/dL (8.4-10.2); Carbon Dioxide 27 mmol/L (22-29); Chloride 98 mmol/L (96-108); Estimated Glomerular Filt Rate 6; Potassium 3.8 mmol/L (3.3-5.1); Sodium 135 mmol/L (135-145)
== END 2025-06-18 08:41 | disposition home or self-care (01) ==
LOC: HO.MMNH2L 08:40
PROVIDERS: Visit Provider Physician Assistant Medical
DX: N18.6 End stage renal disease (principal); I48.91 Unspecified atrial fibrillation
CPT/HCPCS: 36415; 80048; 85025

== ENCOUNTER 2025-06-25 09:02 | Outpatient (REF) | payer BC, MEDICARE, SELFPAY ==
[2025-06-25 07:19] LABS: MANUAL DIFF FLAG NO
[2025-06-25 07:28] LABS: Hematocrit 31.4 % (37.0-47.0); Hemoglobin 10.5 g/dl (12.0-16.0); Imm Gran Abs Auto 0.01 X10*3/uL (0.00-0.03); Imm Gran Pct Auto 0.3 % (0.0-0.4); Lymphocytes Absolute Auto 0.8 X10*3/uL (1.2-4.9); Mean Corpuscular HGB Conc 33.4 g/dl (31.0-35.0); Mean Corpuscular Hemoglobin 27.4 pg (27.0-33.0); Mean Corpuscular Volume 82.0 fL (80.0-98.0); NRBC Abs Auto 0.000 X10*3/uL (0.0-0.012); NRBC Pct Auto 0.0 /100WBC (0.0-0.2); Platelet Count 217 X10*3/uL (160-400); Red Blood Count 3.83 X10*6/uL (4.20-5.50); White Blood Count 3.5 X10*3/uL (4.8-10.8)
[2025-06-25 07:45] LABS: Anion Gap 15 (12-20); Blood Urea Nitrogen 41 mg/dL (9-16); Calcium 10.5 mg/dL (8.4-10.2); Carbon Dioxide 27 mmol/L (22-29); Chloride 96 mmol/L (96-108); Estimated Glomerular Filt Rate 7; Potassium 3.6 mmol/L (3.3-5.1); Sodium 134 mmol/L (135-145)
== END 2025-06-25 09:03 | disposition home or self-care (01) ==
LOC: HO.MMNH2L 09:02
PROVIDERS: Visit Provider Physician Assistant Medical
DX: N18.6 End stage renal disease (principal); I48.91 Unspecified atrial fibrillation
CPT/HCPCS: 36415; 80048; 85025